=== PATIENT | female | born 1945 | race Caucasian/White ===

== ENCOUNTER 2016-07-30 00:28 | Emergency (ER) | payer MEDICARE, MEDICAID ==
[2016-07-30] MEDS ORDERED: TOPICAL LIDOCAINE W/ EPI 5 ML TOP ONE (00:34)
--- NOTE | 2016-07-30 00:41 | Emergency Department Record ---
History of Present Illness - General Chief Complaint: Fall Injury Stated Complaint: FALL Time Seen by Provider: 07/30/16 00:33 Source: Patient Mode of Arrival: Ambulatory Limitations: No limitations - History of Present Illness Initial Comments: 70 yo female presents afer a fall at her [facility]. She was using her walker and got going to fast and fell forward. She hit her right eyebrow area. No LOC. She is at her baseline. She has a skin tear on her right forearm as well. She ambulated into the ED without pain or limp. Complaint: Fall -: Hour(s) (1) Fall From: Standing When Fall Occurred: Just prior to arrival Fall Witnessed: Yes, by living facility staff Place Fall Occurred: snf/SNF Loss of Consciousness: None Prolonged Down Time?: No Symptoms Prior to Fall: None Location: Head Location - Extremities: Right: Forearm Severity: Moderate Quality: Aching Associated Symptoms: Denies - [place] Coma Scale Eye Response: (4) Open spontaneously Motor Response: (6) Obeys commands Verbal Response: (5) Oriented [place] Total: 15 - Related Data Home Medications Medication Instructions Recorded Confirmed Last Taken Alendronate Sodium 70 mg PO WEEKLY 07/30/16 07/30/16 07/24/16 Aspirin 81 mg PO DAILY 07/30/16 07/30/16 07/29/16 Atorvastatin Calcium 10 mg PO DAILY 07/30/16 07/30/16 07/29/16 Carbamide Peroxide [Debrox] 5 drop OT ASDIR 07/30/16 07/30/16 07/24/16 Cyanocobalamin (Vitamin B-12) 1.25 mg PO WEEKLY 07/30/16 07/30/16 07/24/16 [Vitamin B-12] Fexofenadine HCl [Nunu Allergy] 180 mg PO QAM 07/30/16 07/30/16 Unknown Levetiracetam [Keppra] 1,500 mg PO QHS 07/30/16 07/30/16 07/29/16 Levetiracetam [Keppra] 750 mg PO QAM 07/30/16 07/30/16 07/29/16 Multivitamin with Iron [Tab-A-Brooks 1 each PO DAILY 07/30/16 07/30/16 07/29/16 with Iron] Paroxetine HCl [Paxil] 30 mg PO DAILY 07/30/16 07/30/16 07/29/16 Sennosides/Docusate Sodium 2 each PO QHS 07/30/16 07/30/16 07/29/16 [Doc-Q-Lax Tablet] Trazodone HCl 100 mg PO QHS 07/30/16 07/30/16 07/28/16 Allergies Allergy/AdvReac Type Severity Reaction Status Date / Time No Known Drug Allergies Allergy Verified 07/30/16 00:34 Review of Systems Constitutional: Denies: Chills, Fever, Weakness Eyes: Denies: Eye discharge, Eye pain, Photophobia ENT: Denies: Congestion, Throat pain Respiratory: Denies: Cough Cardiovascular: Denies: Chest pain, Palpitations, Syncope Endocrine: Denies: Fatigue Gastrointestinal: Denies: Abdominal pain, Diarrhea, Nausea, Vomiting Genitourinary: Denies: Dysuria, Urgency Musculoskeletal: Denies: Arthralgia, Back pain, Myalgia Skin: Reports: As per HPI, Other Neurological: Denies: Abnormal gait, Confusion, Headache, Numbness, Tingling, Tremors, Vertigo, Weakness Psychiatric: Denies: Anxiety Hematological/Lymphatic: Denies: Easy bleeding, Easy bruising, Swollen glands Physical Exam - General General Appearance: Alert, Oriented x3, Cooperative, No acute distress Limitations: No limitations - Head Head exam: negative: Atraumatic, Normal inspection Head exam detail: Laceration (20mm right eyebrow) Image of Face/Head: 1 - 2cm eyebrow laceration - Eye Eye exam: PERRL, EOMI. negative: Conjunctival injection, Periorbital swelling - ENT ENT exam: Normal exam, Mucous membranes moist Ear exam: Normal external inspection Nasal Exam: Normal inspection Mouth exam: Normal external inspection Teeth exam: Normal inspection - Neck Neck exam: Normal inspection, Full ROM. negative: Tenderness - Respiratory Respiratory exam: Normal lung sounds bilaterally. negative: Accessory muscle use, Respiratory distress, Rhonchi, Stridor, Wheezes - Cardiovascular Cardiovascular Exam: Regular rate, Normal rhythm, Normal heart sounds - GI/Abdominal GI/Abdominal exam: Soft. negative: Tenderness - Rectal Rectal exam: Deferred - exam: Deferred - Extremities Extremities exam: Full ROM, Normal capillary refill. negative: Normal inspection (2cm right forearm skin tear), Joint swelling, Tenderness - Back Back exam: Reports: Normal inspection, Full ROM. Denies: Muscle spasm, Rash noted, Tenderness - Neurological Neurological exam: Alert, Normal gait, Oriented X3. negative: Altered - Psychiatric Psychiatric exam: Normal affect, Normal mood. negative: Agitated, Anxious - Skin Type of lesion: Laceration, Other (skin tear) Course - Reevaluation(s) Reevaluation #1: The skin tear was cleaned and dried Sterisprips used to close 07/30/16 00:39 Reevaluation #2: 2cm eyebrow laceration repair TLE placed Lidocaine 1% with Epi 1.5ml local Betadine prep NS irrigation Chromic Gut 5-0 suture #4 sutures placed tolerated well CT report of the head by [facility] was reported as Soft Tissue hematoma, no fracture or acute injury 07/30/16 01:21 CT scan of the cervical spine no definite abnormality. No fracture, age indeterminate mild superior endplate deformities of T2 and 3. 07/30/16 01:27 Disposition Disposition: Discharge Clinical Impression: Eyebrow laceration Qualifiers: Encounter type: initial encounter Laterality: right Qualified Code(s): S01.111A - Laceration without foreign body of right eyelid and periocular area, initial encounter Disposition: Home, Self-Care Condition: (1) Good Instructions: Laceration (ED), Fall Prevention for Older Adults (ED) Additional Instructions: Return if pain, dizziness, fever, or any new concerns The sutures are dissolvable and will come out in the next week Return if there is any concern about the healing of the laceration or skin tear Forms: Patient Portal Access Time of Disposition: 01:24
--- NOTE | 2016-08-01 03:48 | CT SCAN REPORT ---
DATE: 07/30/2016 at 12:53 a.m. EXAM: CT SCAN OF THE BRAIN WITHOUT CONTRAST. HISTORY: Head injury status post fall tonight. HAND DOMINANCE: Right. ENCOUNTER: Initial. TECHNIQUE: Standard CT imaging of the brain was performed in the axial plane without contrast. Additional coronal and sagittal reformatted images were also performed. COMPARISON: None. FINDINGS: The ventricles and subarachnoid spaces are normal for the patient's age. Mild chronic small-vessel ischemic changes are present within the periventricular and subcortical white matter of both cerebral hemispheres. There is no mass, mass effect, intracranial hemorrhage, visible acute infarct, or abnormal extra-axial fluid. The skull is intact. There are chronic- appearing nasal fractures. No definite acute fracture is identified. There is leftward deviation of the anterior bony nasal septum. There is focalized scalp swelling and laceration within the right frontal region. The orbits and mastoids are normal. IMPRESSION: 1. NO ACUTE INTRACRANIAL ABNORMALITY OR SKULL FRACTURE. 2. MILD CHRONIC SMALL-VESSEL ISCHEMIC CHANGES. 3. CHRONIC-APPEARING NASAL BONE FRACTURES. 4. RIGHT FRONTAL SCALP HEMATOMA AND LACERATION. JOB NUMBER: [id number] [facility]
--- NOTE | 2016-08-01 07:25 | CT SCAN REPORT ---
EXAM: CT SCAN OF THE CERVICAL SPINE WITHOUT CONTRAST HISTORY: FELL TONIGHT. HEAD INJURY. TECHNIQUE: Standard CT imaging of the cervical spine was performed in the axial plane without contrast. Additional coronal and sagittal reformatted images were also performed. Comparison: None. Encounter: Initial. FINDINGS: There is mild exaggeration of the cervical lordosis. The craniocervical and cervicothoracic junctions appear normal. There is no visible acute fracture, subluxation, or prevertebral soft tissue swelling. There is mild compression of the superior end plates of T2, T3, and T4 of uncertain age. No significant surrounding edema is present on the current study. Recommend correlation with the patient's clinical symptoms. If indicated, these could be further assessed with MRI of the thoracic spine. There is severe disk space narrowing of the C6-C7 level with associated end plate degenerative change. There is moderate disk space narrowing of the C5-C6 and C7-T1 levels. There is mild anterolisthesis of C7 on T1 which appears secondary to bilateral facet arthropathy. Facet arthropathy is also present throughout the remaining cervical levels. There are advanced arthritic changes at the atlantodental articulation. There is no gross central canal stenosis. Moderate neural foraminal narrowing is present at multiple levels. Vascular calcifications are present within the carotid arteries bilaterally. The neck soft tissues are otherwise normal. IMPRESSION: 1. MILD AGE INDETERMINATE COMPRESSION DEFORMITIES OF THE SUPERIOR END PLATES OF T2, T3, AND T4. RECOMMEND CORRELATION WITH THE PATIENT'S CLINICAL SYMPTOMS AND FOLLOW-UP MRI INDICATED. 2. NO ACUTE CERVICAL SPINE PATHOLOGY. 3. EXTENSIVE MULTILEVEL DEGENERATIVE DISK DISEASE AND FACET ARTHROPATHY . JOB [facility]BER: [id number] [facility]
== END 2016-07-30 01:34 | disposition home or self-care (01) ==
LOC: ER 00:28
DX: S01.111A Laceration without foreign body of right eyelid and periocular area, initial encounter (principal); S51.811A Laceration without foreign body of right forearm, initial encounter; M50.30 Other cervical disc degeneration, unspecified cervical region; W18.30XA Fall on same level, unspecified, initial encounter; Y92.129 Unspecified place in nursing home as the place of occurrence of the external cause
CPT/HCPCS: 12011; 70450; 72125; 72141; 99283; 99284

== ENCOUNTER 2016-08-14 01:57 | Emergency (ER) | payer MEDICARE, MEDICAID ==
[2016-08-14] MEDS ORDERED: ACETAMINOPHEN 325 MG TAB PO ONE (02:15)
--- NOTE | 2016-08-14 02:21 | Emergency Department Record ---
History of Present Illness - General Chief Complaint: Fall Injury Stated Complaint: FELL,HIT HEAD Time Seen by Provider: 08/14/16 02:07 Source: Patient, Family Mode of Arrival: Ambulatory Limitations: No limitations - History of Present Illness Initial Comments: The patient is here due to falling at home about an hour ago and bumping her head. She has a hx of developmental delay and walks with a walker and lives at an [facility] home. Per her caregiver she gets up once a night to use the bathroom and tonight slipped and bumped her head on a table. There was no reported LOC and the fall was heard by staff. She was able to ambulating normally since the fall and only is complaining of mild L sided head pain where the trauma occurred. She has had no nausea, vomiting, confusion, balance issues or neck pain. The patient is not on any blood thinners. MD Complaint: Fall Onset/Timin -: Minutes(s) Fall From: Standing When Fall Occurred: Just prior to arrival Fall Witnessed: No Place Fall Occurred: Home Loss of Consciousness: None Prolonged Down Time?: No Symptoms Prior to Fall: None Location: Head Severity: Mild Severity scale (1-10): 3 Quality: Aching Context: Tripped/slipped Associated Symptoms: Denies - [place] Coma Scale Eye Response: (4) Open spontaneously Motor Response: (6) Obeys commands Verbal Response: (5) Oriented [place] Total: 15 - Related Data Home Medications Medication Instructions Recorded Confirmed Last Taken Alendronate Sodium 70 mg PO WEEKLY 07/30/16 08/14/16 07/24/16 Aspirin 81 mg PO DAILY 07/30/16 08/14/16 07/29/16 Atorvastatin Calcium 10 mg PO DAILY 07/30/16 08/14/16 07/29/16 Carbamide Peroxide [Debrox] 5 drop OT ASDIR 07/30/16 08/14/16 07/24/16 Cyanocobalamin (Vitamin B-12) 1.25 mg PO WEEKLY 07/30/16 08/14/16 07/24/16 [Vitamin B-12] Fexofenadine HCl [Nunu Allergy] 180 mg PO QAM 07/30/16 08/14/16 Unknown Levetiracetam [Keppra] 1,500 mg PO QHS 07/30/16 08/14/16 07/29/16 Levetiracetam [Keppra] 750 mg PO QAM 07/30/16 08/14/16 07/29/16 Multivitamin with Iron [Tab-A-Brooks 1 each PO DAILY 07/30/16 08/14/16 07/29/16 with Iron] Paroxetine HCl [Paxil] 30 mg PO DAILY 07/30/16 08/14/16 07/29/16 Sennosides/Docusate Sodium 2 each PO QHS 07/30/16 08/14/16 07/29/16 [Doc-Q-Lax Tablet] Trazodone HCl 100 mg PO QHS 07/30/16 08/14/16 07/28/16 Allergies Allergy/AdvReac Type Severity Reaction Status Date / Time No Known Drug Allergies Allergy Verified 08/14/16 02:01 Travel Screening - Travel/Exposure Within Last 30 Days Have you traveled within the last 30 days?: No - Travel/Exposure Within Last Year Have you traveled outside the [place] in the last year?: No Review of Systems Constitutional: Denies: Chills, Fever Eyes: Denies: Eye discharge ENT: Denies: Congestion Respiratory: Denies: Cough, Dyspnea Past Medical History - SOCIAL HISTORY Smoking Status: Never smoker Alcohol Use: None Drug Use: None - RESPIRATORY Hx Respiratory Disorders: No - CARDIOVASCULAR Hx Cardio Disorders: No - NEURO Hx Seizures: Yes - GI Hx GI Disorders: No - Hx Genitourinary Disorders: No - ENDOCRINE Hx Endocrine Disorders: No - MUSCULOSKELETAL Hx Musculoskeletal Disorders: No - PSYCH Hx Psych Problems: Yes Comment:: mental retardation - HEMATOLOGY/ONCOLOGY Hx Hematology/Oncology Disorders: No Family Medical History Any Significant Family History?: No Physical Exam - General General Appearance: Alert, Cooperative, No acute distress - Head Head exam: Normocephalic. negative: Atraumatic, Normal inspection (There is a mild contusion to the L parietal scalp area. There is no swelling or bleeding or laceration.) - Eye Eye exam: Normal appearance, PERRL - ENT Throat exam: Normal inspection. negative: Tonsillar erythema, Tonsillar exudate - Neck Neck exam: Normal inspection, Full ROM. negative: Lymphadenopathy, Meningismus , Tenderness (There is no posterior cspine tenderness and no pain with ROM.) - Respiratory Respiratory exam: Normal lung sounds bilaterally. negative: Respiratory distress - Cardiovascular Cardiovascular Exam: Regular rate, Normal rhythm, Normal heart sounds - GI/Abdominal GI/Abdominal exam: Soft, Normal bowel sounds. negative: Tenderness - Extremities Extremities exam: Normal inspection, Full ROM (There is no pain with ROM of the hips or shoulders.), Normal capillary refill. negative: Tenderness - Neurological Neurological exam: Alert, Normal gait. negative: Abnormal gait, Altered, Motor sensory deficit, Oriented X3 (The patient is oriented to name, Bday and place but not date and that is normal per her caregiver.) Course Vital Signs 08/14/16 02:05 Temperature 98.0 F Pulse Rate [ 75 Pulse Ox Probe] Respiratory 18 Rate Blood Pressure 128/72 [Left Arm] Pulse Ox 95 - Reevaluation(s) Reevaluation #1: The patient is doing very well at this time. She denies any head pain or neck pain and is acting normally per her caregiver. I did discuss the neg CT with the caregiver and the need to watch for any signs of any head injury. 08/14/16 03:01 Medical Decision Making - Data Complexity MDM Data: X-Ray Ordered and/or Reviewed - Radiology Data Radiology results: Report reviewed (Head CT: Neg for any acute abnormality.) Disposition Disposition: Discharge Clinical Impression: Head contusion Qualifiers: Encounter type: initial encounter Contusion of head detail: scalp Qualified Code(s): S00.03XA - Contusion of scalp, initial encounter Disposition: Home, Self-Care Condition: (1) Good Instructions: Fall Prevention for Older Adults (ED), Scalp Contusion in Adults (ED) Additional Instructions: Please use Tylenol for pain if needed. Watch for any signs of a head injury such as a headache, vomiting, or increasing confusion. Return to the ER for any problems or any signs of a head injury. Forms: Patient Portal Access Time of Disposition: 03:00
== END 2016-08-14 03:06 | disposition home or self-care (01) ==
LOC: ER 01:57
DX: S00.03XA Contusion of scalp, initial encounter (principal); R51 Headache; W01.190A Fall on same level from slipping, tripping and stumbling with subsequent striking against furniture, initial encounter; F79 Unspecified intellectual disabilities; Y92.009 Unspecified place in unspecified non-institutional (private) residence as the place of occurrence of the external cause
CPT/HCPCS: 70450; 99283

== ENCOUNTER 2017-08-19 21:42 | Emergency (ER) | payer MEDICARE, MEDICAID ==
--- NOTE | 2017-08-19 22:48 | Emergency Department Record ---
History of Present Illness - General Chief Complaint: Fall Injury Stated Complaint: FELL AND HIT HEAD Time Seen by Provider: 08/19/17 22:04 Source: Patient Mode of Arrival: Ambulatory Limitations: No limitations - History of Present Illness Initial Comments: pt fell in bathroom hitting head on toilet. she had no loc and she did not have a seizure. she has a laceration MD Complaint: Fall Onset/Timin -: Minutes(s) Fall From: Standing When Fall Occurred: Just prior to arrival Fall Witnessed: No Place Fall Occurred: [facility] Loss of Consciousness: None Prolonged Down Time?: No Symptoms Prior to Fall: None Location: Head Severity scale (1-10): 1 Associated Symptoms: Denies - [place] Coma Scale Eye Response: (4) Open spontaneously Motor Response: (6) Obeys commands Verbal Response: (5) Oriented [place] Total: 15 - Related Data Allergies Allergy/AdvReac Type Severity Reaction Status Date / Time No Known Drug Allergies Allergy Verified 08/14/16 02:01 Travel Screening - Travel/Exposure Within Last 30 Days Have you traveled within the last 30 days?: No - Travel Symptoms Symptom Screening: None Review of Systems Reviewed: No additional complaints except as noted below Constitutional: Reports: As per HPI. Denies: Chills, Fever, Malaise, Night sweats, Weakness, Weight change Eyes: Reports: As per HPI. Denies: Eye discharge, Eye pain, Photophobia, Vision change ENT: Reports: As per HPI. Denies: Congestion, Dental pain, Ear pain, Epistaxis , Hearing loss, Throat pain Respiratory: Reports: As per HPI. Denies: Cough, Dyspnea, Hemoptysis, Stridor, Wheezes Cardiovascular: Reports: As per HPI. Denies: Arrhythmia, Chest pain, Dyspnea on exertion, Edema, Murmurs, Orthopnea, Palpitations, Paroxysmal nocturnal dyspnea, Rheumatic Fever, Syncope Endocrine: Reports: As per HPI. Denies: Fatigue, Heat or cold intolerance, Polydipsia, Polyuria Gastrointestinal: Reports: As per HPI. Denies: Abdominal pain, Constipation, Diarrhea, Hematemesis, Hematochezia, Melena, Nausea, Vomiting Genitourinary: Reports: As per HPI. Denies: Abnormal menses, Discharge, Dyspareunia, Dysuria, Frequency, Hematuria, Incontinence, Retention, Urgency Musculoskeletal: Reports: As per HPI. Denies: Arthralgia, Back pain, Gout, Joint swelling, Myalgia, Neck pain Skin: Reports: As per HPI. Denies: Bruising, Change in color, Change in hair/ nails, Lesions, Pruritus, Rash Neurological: Reports: As per HPI. Denies: Abnormal gait, Confusion, Headache, Numbness, Paresthesias, Seizure, Tingling, Tremors, Vertigo, Weakness Psychiatric: Reports: As per HPI. Denies: Anxiety, Auditory hallucinations, Depression, Homicidal thoughts, Suicidal thoughts, Visual hallucinations Hematological/Lymphatic: Reports: As per HPI. Denies: Anemia, Blood Clots, Easy bleeding, Easy bruising, Swollen glands Past Medical History - SOCIAL HISTORY Smoking Status: Never smoker - RESPIRATORY Hx Respiratory Disorders: No - CARDIOVASCULAR Hx Cardio Disorders: No - NEURO Hx Neuro Disorders: Yes Hx Seizures: Yes - GI Hx GI Disorders: No - Hx Genitourinary Disorders: No - ENDOCRINE Hx Endocrine Disorders: Yes Hx Thyroid Disease: Yes - MUSCULOSKELETAL Hx Musculoskeletal Disorders: No - PSYCH Hx Psych Problems: Yes Hx Anxiety: Yes Hx Behavior Problems: (Impulsive control disorder) Comment:: mental retardation - HEMATOLOGY/ONCOLOGY Hx Hematology/Oncology Disorders: No Family Medical History Any Significant Family History?: No Family Hx Comment (NOT TO BE USED IN PLACE OF ITEMS BELOW): unknown Physical Exam - General General Appearance: Alert, Oriented x3, Cooperative, Mild distress - Head Head exam: Normal inspection Head exam detail: Laceration - Eye Eye exam: Normal appearance, PERRL, EOMI Pupils: Normal accommodation - ENT ENT exam: Normal exam, Mucous membranes moist, Normal external ear exam, Normal orophraynx Ear exam: Normal external inspection. negative: External canal tenderness Nasal Exam: Normal inspection. negative: Discharge, Sinus tenderness Mouth exam: Normal external inspection, Tongue normal Teeth exam: Normal inspection. negative: Dental caries Throat exam: Normal inspection. negative: Tonsillar erythema, Tonsillar exudate - Neck Neck exam: Normal inspection, Full ROM. negative: Tenderness - Respiratory Respiratory exam: Normal lung sounds bilaterally. negative: Respiratory distress - Cardiovascular Cardiovascular Exam: Regular rate, Normal rhythm, Normal heart sounds - GI/Abdominal GI/Abdominal exam: Soft, Normal bowel sounds. negative: Tenderness - Rectal Rectal exam: Deferred - exam: Deferred - Extremities Extremities exam: Normal inspection, Full ROM, Normal capillary refill. negative: Tenderness - Back Back exam: Reports: Normal inspection, Full ROM. Denies: Muscle spasm, Rash noted, Tenderness - Neurological Neurological exam: Alert, CN II-XII intact, Normal gait, Oriented X3 - Psychiatric Psychiatric exam: Normal affect, Normal mood - Skin Skin exam: Dry, Intact, Normal color, Warm Course Vital Signs 08/19/17 21:49 Temperature 97.6 F Pulse Rate [ 77 Pulse Ox Probe] Respiratory 18 Rate Blood Pressure 160/71 [Right Arm] Pulse Ox 100 - Reevaluation(s) Reevaluation #1: 08/19/17 23:19 laceration does not require stapling Reevaluation #2: 08/19/17 23:[address] neg for acute injury Disposition Disposition: Discharge Clinical Impression: Head injury Qualifiers: Encounter type: initial encounter Qualified Code(s): S09.90XA - Unspecified injury of head, initial encounter Disposition: Home, Self-Care Condition: (1) Good Instructions: Fall Prevention for Older Adults (ED), Head Injury (ED) Additional Instructions: follow up with family doctor. return sooner if worse Forms: Patient Portal Access Quality - Quality Measures Quality Measures: N/A - Blood Pressure Screening Does Patient Have Any of the Following: No Blood Pressure Classification: Hypertensive Reading Systolic Measurement: 160 Diastolic Measurement: 71 Screening for High Blood Pressure: < First Hypertensive BP, F/U Documented > [ [id number]] First Hypertensive Follow-up Interventions: Follow-up with rescreen GT 1 day and LT 4 weeks.
--- NOTE | 2017-08-22 12:23 | CT SCAN REPORT ---
EXAM: CT SCAN HEAD WO CONTRAST HISTORY: OPEN WOUND, LEFT SIDE OF HEAD. TECHNIQUE: Routine noncontrast CT examination of the head. COMPARISON: CT head without contrast dated 08/14/2016. FINDINGS: There is subarachnoid space dilatation, mild in the supratentorial region and mild to moderate in the infratentorial region consistent with atrophy. This pattern is unchanged. Mild periventricular and subcortical white matter lucencies are scattered in each cerebral hemisphere symmetrically, unchanged. No new area of abnormally increased or decreased attenuation is noted throughout the brain substance. No new abnormal extra-axial fluid collection is seen nor is there skull fracture identified. Minor left parietal scalp swelling is suggested. Leftward deviation of the osseous nasal septum anteriorly is stable. The visualized paranasal sinuses and mastoid air cells are clear. The orbits, as visualized, are unremarkable. IMPRESSION: 1. NO CT EVIDENCE OF ACUTE MAJOR VESSEL INFARCT, INTRACRANIAL HEMORRHAGE, MASS, NOR SKULL FRACTURE. NO SIGNIFICANT CHANGE IN APPEARANCE OF THE BRAIN SINCE 08/14. 2. CEREBELLAR GREATER THAN CEREBRAL ATROPHY. 3. MINOR LEFT PARIETAL SCALP SWELLING. 4. NOT MENTIONED ABOVE IS REDEMONSTRATION OF A SMALL CRANIOTOMY DEFECT IN THE RIGHT TEMPORAL REGION. [facility]: [id number] [facility]
== END 2017-08-19 23:30 | disposition home or self-care (01) ==
LOC: ER 21:42
DX: S01.81XA Laceration without foreign body of other part of head, initial encounter (principal); S09.90XA Unspecified injury of head, initial encounter; W01.198A Fall on same level from slipping, tripping and stumbling with subsequent striking against other object, initial encounter; Y92.121 Bathroom in nursing home as the place of occurrence of the external cause
CPT/HCPCS: 70450; 99283

== ENCOUNTER 2018-08-13 11:36 | Emergency (ER) | payer MEDICARE, MEDICAID ==
--- NOTE | 2018-08-13 11:43 | Emergency Department Record ---
History of Present Illness - General Chief Complaint: Fall Injury Stated Complaint: FELL 08/08/CASTELLANOS/SEIZURE Time Seen by Provider: 08/13/18 11:40 Source: Patient, Family Mode of Arrival: Ambulatory Limitations: No limitations - History of Present Illness Initial Comments: 72 yo female presents after a fall on August 08. The fall occurred in her skilled nursing during a visiting physician appointment. She was checked by her doctor and seemed fine at the time. She has been at her baseline. She has mentioned a headache on and off on the left. No confusion or dizziness. No nausea or vomiting. She does have a seizure disorder. She has a seizure about every 3 months. She had a typical seizure this morning and returned to baseline. She is on her Keppra without missed doses. MD Complaint: Fall, Other (Seizure. 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 (5) Fall Witnessed: Yes, by living facility staff Place Fall Occurred: [facility] Loss of Consciousness: None Prolonged Down Time?: No Symptoms Prior to Fall: None Location: Head Severity: Mild Quality: Aching Associated Symptoms: Neck pain - [place] Coma Scale Eye Response: (4) Open spontaneously Motor Response: (6) Obeys commands Verbal Response: (5) Oriented [place] Total: 15 - Related Data Home Medications Medication Instructions Recorded Confirmed Last Taken Cholecalciferol (Vitamin D3) 50,000 unit PO WEEKLY 08/13/18 08/13/18 08/13/18 [Vitamin D3] Cyproheptadine HCl 4 mg PO DAILY 08/13/18 08/13/18 08/13/18 Ferrous Sulfate [Feosol] 325 mg PO DAILY 08/13/18 08/13/18 08/13/18 Levothyroxine Sodium [Synthroid] 75 mcg PO DAILY 08/13/18 08/13/18 08/13/18 Allergies Allergy/AdvReac Type Severity Reaction Status Date / Time No Known Drug Allergies Allergy Verified 08/13/18 11:39 Review of Systems Constitutional: Denies: Chills, Fever, Malaise, Weakness Eyes: Denies: Eye discharge ENT: Denies: Congestion, Throat pain Respiratory: Denies: Cough, Dyspnea Cardiovascular: Denies: Chest pain, Palpitations, Syncope Endocrine: Denies: Fatigue, Polydipsia, Polyuria Gastrointestinal: Denies: Abdominal pain, Diarrhea, Nausea, Vomiting Genitourinary: Denies: Dysuria, Urgency Musculoskeletal: Denies: Arthralgia, Back pain, Joint swelling, Myalgia Skin: Denies: Bruising, Change in color, Rash Neurological: Reports: As per HPI, Headache, Seizure. Denies: Abnormal gait, Confusion, Numbness, Vertigo, Weakness Psychiatric: Denies: Anxiety Hematological/Lymphatic: Denies: Easy bleeding, Easy bruising Past Medical History - SOCIAL HISTORY Smoking Status: Never smoker - RESPIRATORY Hx Respiratory Disorders: No - CARDIOVASCULAR Hx Cardio Disorders: No - NEURO Hx Neuro Disorders: Yes Hx Seizures: Yes - GI Hx GI Disorders: No - Hx Genitourinary Disorders: No - ENDOCRINE Hx Endocrine Disorders: Yes Hx Thyroid Disease: Yes - MUSCULOSKELETAL Hx Musculoskeletal Disorders: No - PSYCH Hx Psych Problems: Yes Hx Anxiety: Yes Hx Behavior Problems: (Impulsive control disorder) Comment:: mental retardation - HEMATOLOGY/ONCOLOGY Hx Hematology/Oncology Disorders: No Family Medical History Family Hx Comment (NOT TO BE USED IN PLACE OF ITEMS BELOW): unknown Physical Exam - General General Appearance: Alert, Oriented x3, Cooperative, No acute distress - Head Head exam: negative: Atraumatic Head exam detail: Abrasion Image of Face/Head: 1 - small mild abrasion 2 - tender, no swelling - Eye Eye exam: Normal appearance, PERRL. negative: Conjunctival injection, Scleral icterus Pupils: Normal accommodation. negative: Irregular, Unequal - ENT ENT exam: Normal exam Ear exam: Normal external inspection Nasal Exam: Normal inspection Mouth exam: Normal external inspection Teeth exam: Normal inspection Throat exam: Normal inspection - Neck Neck exam: Normal inspection - Respiratory Respiratory exam: Normal lung sounds bilaterally. negative: Respiratory distress - Cardiovascular Cardiovascular Exam: Regular rate, Normal rhythm, Normal heart sounds Peripheral Pulses: 2+: Radial (R), Radial (L) - GI/Abdominal GI/Abdominal exam: Soft. negative: Tenderness - Rectal Rectal exam: Deferred - exam: Deferred - Extremities Extremities exam: Normal inspection - Back Back exam: Denies: CVA tenderness (R), CVA tenderness (L) - Neurological Neurological exam: Alert, CN II-XII intact, Other (At baseline, answers questions). negative: Altered, Motor sensory deficit - Psychiatric Psychiatric exam: Normal affect, Normal mood. negative: Agitated, Anxious - Skin Skin exam: Abrasion, Dry, Normal color, Warm Course - Reevaluation(s) Reevaluation #1: The vitals were reviewed. No acute abnormality 08/13/18 12:57 The labs were reviewed CBC WBC is 13 No acute changes on the CMP 08/13/18 13:05 The HCT was reviewed. No acute injury. Numerous prior older stable findings (see full report) 08/13/18 13:[address] was reviewed. No acute injury. Widespread degenerative changes noted. DC home with instructions for close follow up with PCP or return if any concerns Medical Decision Making - Lab Data Result diagrams: 08/13/18 12:08 08/13/18 12:08 Disposition Disposition: Discharge Clinical Impression: Seizure disorder Contusion of head Qualifiers: Encounter type: initial encounter Contusion of head detail: unspecified part of head Qualified Code(s): S00.93XA - Contusion of unspecified part of head, initial encounter Disposition: Home, Self-Care Condition: (1) Good Instructions: Fall Prevention for Older Adults (ED) Additional Instructions: Call your doctor for the next available follow up appointment Review this ER visit and the tests performed with your family doctor Return to the ER for a recheck if worse, any new concerns or questions Take the prescriptions provided as directed Forms: Patient Portal Access Quality - Quality Measures Quality Measures: N/A - Blood Pressure Screening Does Patient Have Any of the Following: No Blood Pressure Classification: Pre-Hypertensive BP Reading Systolic Measurement: 136 Diastolic Measurement: 73 Screening for High Blood Pressure: < Pre-Hypertensive BP, F/U Documented > [G8950] Pre-Hypertensive Follow-up Interventions: Referral to alternative/primary care provider.
[2018-08-13 12:14] LABS: ABSOLUTE NEUTROPHIL COUNT 10.77; HEMATOCRIT 34.2 % (35.0-47.0); HEMOGLOBIN 10.5 gm/dl (11.6-16.0); MEAN CELL VOLUME 89.8 fl (81-97); MEAN CORPUSCULAR HEMOGLOBIN 27.5 pg (27-33); MEAN CORPUSCULAR HGB CONC 30.7 g/dl (32-36); MEAN PLATELET VOLUME 8.2 fl (7.4-10.4); PLATELET COUNT 375 K/uL (130-400); RED BLOOD COUNT 3.81 M/uL (3.80-5.40); RED CELL DISTRIBUTION WIDTH 14.6 % (11.5-14.5)
[2018-08-13 12:22] LABS: PLATELET ESTIMATE NORMAL (NORMAL)
[2018-08-13 12:27] LABS: BLOOD UREA NITROGEN 17 mg/dL (8-23)
[2018-08-13 12:28] LABS: CREATININE 0.6 mg/dL (0.5-0.9); EST GLOMERULAR FILTRATION RATE > 60 mL/min; PARTIAL THROMBOPLASTIN TIME 38.5 SECONDS (24.5-39.1); PROTHROMBIN TIME (PATIENT) 10.6 SECONDS (9.5-12.1)
[2018-08-13 12:30] LABS: GLUCOSE,RANDOM 93 mg/dL (74-109)
--- NOTE | 2018-08-14 19:37 | CT SCAN REPORT ---
EXAM: CT SCAN HEAD WO CONTRAST HISTORY: FALL ON 08/08/2018. HEADACHE BEGINNING YESTERDAY. SEIZURE THIS MORNING. TECHNIQUE: Routine noncontrast CT of the brain. COMPARISON: CT brain without contrast dated 08/19/2017. FINDINGS: The subarachnoid spaces remain mildly dilated consistent with age- related atrophy. Atrophy is greater within the cerebellum than cerebral hemispheres, stable. The ventricles are not enlarged. Minor, primarily periventricular white matter lucencies are noted in each cerebral hemisphere, most pronounced in the frontal lobes. These are nonspecific but likely areas of chronic microvascular ischemia. An old lacunar infarct is suspected in the anterior limb of the right internal capsule. This is not as well visualized on the prior examination. No other area of abnormally increased or decreased attenuation is noted throughout the brain substance. No abnormal extraaxial fluid collection is seen. There is mild atherosclerotic calcification of the distal vertebral arteries and distal internal carotid arteries. No asymmetric density of the middle cerebral arteries. No skull fracture is demonstrated. Small craniotomy defect again noted within the right temporal region. The visualized paranasal sinuses and mastoid air cells are clear. There is leftward deviation of the anterior superior aspect of the osseous nasal septum and rightward displacement of the inferior mid nasal septum. Chronic left nasal bone deformity redemonstrated. IMPRESSION: 1. NO CT EVIDENCE OF ACUTE MAJOR VESSEL INFARCT, INTRACRANIAL HEMORRHAGE, MASS, NOR SKULL FRACTURE. 2. MILD AGE-RELATED ATROPHY. 3. MILD WHITE MATTER LUCENCIES IN EACH CEREBRAL HEMISPHERE ARE NONSPECIFIC, THOUGH LIKELY AREAS OF CHRONIC SMALL VESSEL ISCHEMIA. PROBABLE OLD LACUNAR INFARCT IN THE ANTERIOR LIMB OF THE RIGHT INTERNAL CAPSULE NOT WELL SEEN ON THE PRIOR EXAMINATION. 4. SMALL CRANIOTOMY DEFECT REDEMONSTRATED IN THE RIGHT TEMPORAL REGION. JOB NUMBER: [id number] [facility]
--- NOTE | 2018-08-14 19:53 | CT SCAN REPORT ---
EXAM: CT SCAN CERVICAL SPINE WO CONTRAST HISTORY: FALL ON 08/08/2018. HEADACHE BEGINNING YESTERDAY. SEIZURE THIS MORNING. TECHNIQUE: Thin-collimation helical CT examination of the cervical spine is performed without intravenous contrast. Coronal and sagittal reformatted images are generated and reviewed. COMPARISON: CT of the cervical spine without contrast dated 07/30/2016. FINDINGS: Diffuse osteopenia limits evaluation. Mild chronic superior endplate compression deformities of T1, T2, T3, and T4 appear stable. There is again noted anterolisthesis of C7 on T1. This now measures 3.5 mm, while on the prior examination 3 mm. Degenerative endplate changes at this level have progressed, now moderate in degree. Minimal anterolisthesis of C3 on C4, C4 on C5, and C5 on C6 redemonstrated. The vertebral bodies are otherwise normal in alignment and height. No acute fracture nor prevertebral soft tissue swelling. No new lytic or blastic bone lesion. Multilevel degenerative disc/degenerative endplate changes are identified, most pronounced at the C6-C7 level, where there is diffuse degenerative sclerosis of the vertebral bodies. There has been obliteration of the disc space with probable fusion of these vertebral bodies in the interval. The degenerative disc/endplate changes at the C7-T1 level are moderate to severe on the right. Again, these have progressed in the interval. The degenerative disc changes at the C5-C6 level are moderate. They are mild at the remaining cervical levels. No new gross osseous cervical spinal stenosis. Multilevel bilateral facet degenerative changes are identified. These are moderate to advanced in degree at all levels. No new perched facet. No new cervical mass nor adenopathy. Moderate atherosclerosis of the carotid bifurcations. There are advanced osteoarthritic changes of the left glenohumeral joint and mild osteoarthritic changes of the right glenohumeral joint. Moderate advanced degenerative changes of the left sternomanubrial joint and mild degenerative changes of the right sternomanubrial joint. IMPRESSION: 1. NO ACUTE FRACTURE, NEW SUSPICIOUS SUBLUXATION, OR PREVERTEBRAL SOFT TISSUE SWELLING. 2. DIFFUSE DEGENERATIVE CHANGES THROUGHOUT THE CERVICAL SPINE. THERE HAS BEEN PROGRESSION OF DEGENERATIVE DISEASE AT THE C7-T1 LEVEL WITH SLIGHT WORSENING OF ANTEROLISTHESIS OF C7 ON T1. THERE HAS ALSO BEEN PROGRESSION OF DEGENERATIVE DISEASE AT THE C6-C7 LEVEL WITH PARTIAL FUSION OF THESE VERTEBRAE NOW IDENTIFIED. 3. CHRONIC SUPERIOR ENDPLATE COMPRESSION DEFORMITIES OF THE VISUALIZED UPPER THORACIC VERTEBRAE ARE STABLE. JOB NUMBER: [id number] [facility]
== END 2018-08-13 13:16 | disposition home or self-care (01) ==
LOC: ER 11:36
DX: S00.93XA Contusion of unspecified part of head, initial encounter (principal); S00.81XA Abrasion of other part of head, initial encounter; M54.2 Cervicalgia; R51 Headache; G40.909 Epilepsy, unspecified, not intractable, without status epilepticus; W19.XXXA Unspecified fall, initial encounter; Y92.129 Unspecified place in nursing home as the place of occurrence of the external cause; Z91.81 History of falling
CPT/HCPCS: 70450; 72125; 80048; 85027; 85610; 85730; 99283; 99284

== ENCOUNTER 2019-04-06 21:16 | Inpatient (IN) | payer MEDICARE, MEDICAID ==
--- NOTE | 2019-04-06 21:39 | Emergency Department Record ---
History of Present Illness - General Chief complaint: Flu Like Symptoms Stated complaint: FLU LIKE SYMPTOMS Time Seen by Provider: 04/06/19 21:18 Source: Family (Caregivers) Mode of Arrival: Wheelchair Limitations: No limitations - History of Present Illness Initial comments: 73 yo female presents from an [place] [facility] for evaluation of "gunky eyes" and generalized weakness symptoms that began earlier today. Caregivers report that the patient fell resulting in injury to the left hip this evening as well. CGs report non-productive cough symptoms "for months", deny fever this evening. Caregivers are concerned about influenza. MD Complaint: Generalized weakness Onset/Timin -: Days(s) Location: Generalized Severity: Moderate Consistency: Constant Improves with: None Worsens with: None - [place] Coma Scale Eye Response: (4) Open spontaneously Motor Response: (6) Obeys commands Verbal Response: (5) Oriented [place] Total: 15 - Related Data Allergies Allergy/AdvReac Type Severity Reaction Status Date / Time No Known Drug Allergies Allergy Verified 08/13/18 11:39 Review of Systems Constitutional: Reports: Malaise, Weakness. Denies: Chills, Fever, Night sweats Eyes: Reports: Eye discharge. Denies: Eye pain ENT: Denies: Congestion, Ear pain, Epistaxis Respiratory: Reports: Cough. Denies: Dyspnea Cardiovascular: Denies: Chest pain, Dyspnea on exertion Endocrine: Denies: Fatigue, Heat or cold intolerance Gastrointestinal: Denies: Abdominal pain, Nausea, Vomiting Genitourinary: Denies: Incontinence, Retention Musculoskeletal: Reports: Arthralgia. Denies: Back pain Skin: Denies: Bruising, Change in color Neurological: Denies: Abnormal gait, Confusion, Headache, Seizure Psychiatric: Denies: Anxiety Hematological/Lymphatic: Denies: Anemia, Blood Clots Past Medical History - SOCIAL HISTORY Smoking Status: Never smoker - RESPIRATORY Hx Respiratory Disorders: No - CARDIOVASCULAR Hx Cardio Disorders: No - NEURO Hx Neuro Disorders: Yes Hx Seizures: Yes - GI Hx GI Disorders: No - Hx Genitourinary Disorders: No - ENDOCRINE Hx Endocrine Disorders: Yes Hx Thyroid Disease: Yes - MUSCULOSKELETAL Hx Musculoskeletal Disorders: No - PSYCH Hx Psych Problems: Yes Hx Anxiety: Yes Hx Behavior Problems: (Impulsive control disorder) Comment:: mental retardation - HEMATOLOGY/ONCOLOGY Hx Hematology/Oncology Disorders: No Family Medical History Family Hx Comment (NOT TO BE USED IN PLACE OF ITEMS BELOW): unknown Physical Exam - General General Appearance: Alert, Oriented x3, Cooperative, Mild distress Limitations: No limitations - Head Head exam: Atraumatic, Normocephalic, Normal inspection Head exam detail: negative: Abrasion, Contusion, Aguilar's sign, General tenderness, Hematoma, Laceration - Eye Eye exam: Conjunctival injection, Other (Purulent drainage is present to the left medial canthus>right). negative: Periorbital swelling, Periorbital tenderness - ENT Ear exam: negative: Auricular hematoma, Auricular trauma Nasal Exam: negative: Active bleeding, Discharge, Dried blood, Foreign body Mouth exam: negative: Drooling, Laceration, Muffled voice, Tongue elevation - Neck Neck exam: Normal inspection. negative: Meningismus, Tenderness - Respiratory Respiratory exam: Normal lung sounds bilaterally. negative: Rales, Respiratory distress, Rhonchi, Stridor - Cardiovascular Cardiovascular Exam: Regular rate, Normal rhythm, Normal heart sounds - GI/Abdominal GI/Abdominal exam: Soft. negative: Rebound, Rigid, Tenderness - Rectal Rectal exam: Deferred - exam: Deferred - Extremities Extremities exam: Full ROM, Tenderness (Mild TTP to the left hip subjectively on examination, FROM is present on examination.). negative: Calf tenderness, Pedal edema - Back Back exam: Denies: CVA tenderness (R), CVA tenderness (L) - Neurological Neurological exam: Alert, Oriented X3 - Psychiatric Psychiatric exam: Normal affect, Normal mood - Skin Skin exam: Normal color. negative: Abrasion Type of lesion: negative: abrasion Course Vital Signs 04/06/19 21:29 Temperature 98.6 F Pulse Rate [ 88 Pulse Ox Probe] Respiratory 28 H Rate Blood Pressure 140/67 [Left Arm] Pulse Ox 96 - Reevaluation(s) Reevaluation #1: 04/06/19 22:17 Laboratory studies were reviewed and appear grossly unremarkable for an acute process except for the following: WBC 17.7 Reevaluation #2: 04/06/19 22:38 CXR: Possible reticulonodular infiltrate bases bilaterally Left Hip: No acute process Reevaluation #3: 04/06/19 22:52 UA was reviewed and appears negative for infection. Examination appears most c/w atypical pneumonia (elevated WBC, weakness, tachypnea) Will initiate treatment with Zithromax and Rocephin and admit for further evaluation. Reevaluation #4: 04/07/19 06:45 Case was discussed with Dr. Matson, will accept admission at this time. Medical Decision Making - Lab Data Result diagrams: 04/06/19 21:42 04/06/19 21:42 Disposition Disposition: Admit Clinical Impression: Generalized weakness, Atypical pneumonia Disposition: Still a Patient at [facility] Decision to Admit: Admit from ER Decision to Admit Date: 04/06/19 Decision to Admit Time: 22:55 Condition: (2) Stable Time of Disposition: 22:55 Quality - Quality Measures Quality Measures: N/A - Blood Pressure Screening Does Patient Have Any of the Following: No Blood Pressure Classification: Pre-Hypertensive BP Reading Systolic Measurement: 136 Diastolic Measurement: 70 Screening for High Blood Pressure: < Pre-Hypertensive BP, F/U Documented > [G8950] Pre-Hypertensive Follow-up Interventions: Referral to alternative/primary care provider.
[2019-04-06] MEDS ORDERED: 0.9 % SODIUM CHLORIDE 1000ML 500 ML IV SCH (21:45)
[2019-04-06 21:51] LABS: HEMATOCRIT 38.4 % (35.0-47.0); HEMOGLOBIN 12.1 gm/dl (11.6-16.0); MEAN CELL VOLUME 89.5 fl (81-97); MEAN CORPUSCULAR HEMOGLOBIN 28.2 pg (27-33); MEAN CORPUSCULAR HGB CONC 31.5 g/dl (32-36); MEAN PLATELET VOLUME 8.1 fl (7.4-10.4); PLATELET COUNT 349 K/uL (130-400); RED BLOOD COUNT 4.29 M/uL (3.80-5.40); RED CELL DISTRIBUTION WIDTH 13.9 % (11.5-14.5); WHITE BLOOD COUNT W/O DIFF 17.7 K/uL (4.2-12.2)
[2019-04-06 21:55] LABS: INFLUENZA A NEGATIVE (NEGATIVE); INFLUENZA B NEGATIVE (NEGATIVE)
[2019-04-06 22:04] LABS: BLOOD UREA NITROGEN 16 mg/dL (8-23); CREATININE 0.7 mg/dL (0.5-0.9); EST GLOMERULAR FILTRATION RATE > 60 mL/min
[2019-04-06 22:05] LABS: TOTAL PROTEIN 6.8 g/dL (6.6-8.7)
[2019-04-06 22:06] LABS: GLUCOSE,RANDOM 125 mg/dL (74-109)
[2019-04-06 22:09] LABS: ALB/GLOB RATIO 1.1 (1.1-1.8); ALBUMIN 3.5 g/dL (4.0-5.0); ALKALINE PHOSPHATASE 92 U/L (35-104); ALT/SGPT 18 U/L (<33); AST/SGOT 19 U/L (10.0-35.0)
--- NOTE | 2019-04-06 22:35 | RADIOLOGY REPORT ---
EXAMINATION: Two View Chest Radiographs EXAM DATE: 04/06/2019 10:24 PM TECHNIQUE: Frontal and lateral views INDICATION: weakness, cough COMPARISON: None ENCOUNTER: Not applicable FINDINGS: Reticulonodular pattern primarily in the lower lobes partially obscuring the lower thoracic vertebral bodies on lateral view. Upper lungs are clear. Cardiac silhouette is not enlarged. Diaphragm is unre markable. Osteopenia.. IMPRESSION: 1. Reticulonodular pattern in the lower lobes for which atypical pneumonia is possible. Dictated by: Sanket Fuentes MD on 04/06/2019 10:28 PM. .
--- NOTE | 2019-04-06 22:35 | RADIOLOGY REPORT ---
EXAMINATION: Left Hip Minimum Two Views EXAM DATE: 04/06/2019 10:25 PM TECHNIQUE: AP pelvis and left frog leg lateral hip views INDICATION: fall, injury COMPARISON: None ENCOUNTER: Initial FINDINGS: There is no acute bone or joint abnormality. There is a chronic appearing fracture deformity of the l eft pubic rami seen adjacent to the pubic symphysis. There is a calcification in the pelvis possibly related to a calcified uterine fibroid. IMPRESSION: No acute abnormalities. Dictated by: Alejandra Dalal MD on 04/06/2019 10:30 PM. .
[2019-04-06 22:38] LABS: URINE APPEARANCE CLEAR; URINE BILIRUBIN NEGATIVE (NEGATIVE); URINE BLOOD TRACE-I (NEGATIVE); URINE COLOR YELLOW; URINE GLUCOSE (UA) NEGATIVE (NEGATIVE); URINE KETONE NEGATIVE (NEGATIVE); URINE LEUKOCYTE ESTERASE TRACE (NEGATIVE); URINE NITRITE NEGATIVE (NEGATIVE); URINE PROTEIN NEGATIVE (NEGATIVE); URINE UROBILINOGEN 0.2 E.U./dL (0.20 - 1.00)
[2019-04-06 22:41] LABS: PLATELET ESTIMATE NORMAL (NORMAL)
[2019-04-06] MEDS ORDERED: AZITHROMYCIN 500 MG in 0.9 % SODIUM CHLORIDE 250ML 250 ML IVPB ONE (23:02)
[2019-04-06] MEDS ORDERED: CEFTRIAXONE 1GM/50ML BAG 1 GM/50 ML BAG IVPB ONE (23:02)
[2019-04-06 23:06] LABS: URINE BACTERIA FEW; URINE RBC 0 - 2 (NONE SEEN); URINE SQUAMOUS EPITHELIAL CELL 0 - 2 /hpf; URINE WBC 0 - 2 (0-2/hpf)
[2019-04-06] MEDS ORDERED: 0.9 % SODIUM CHLORIDE 1000ML 1,000 ML IV ONE (23:30)
[2019-04-06] MEDS ORDERED: CARBAMIDE PEROXIDE 15ML BTL OT SCH (23:30)
[2019-04-06] MEDS ORDERED: CEFTRIAXONE SODIUM 1 GM in 0.9 % SODIUM CHLORIDE 100ML 100 ML IVPB SCH (23:30)
[2019-04-06] MEDS ORDERED: AZITHROMYCIN 500 MG in 0.9 % SODIUM CHLORIDE 250ML 250 ML IVPB SCH (23:30)
[2019-04-07] MEDS: GENTAMICIN SULFATE 0.3% OPTH 5 ML BTL OPTH SCH ×6 (00:14→21:28)
[2019-04-07] MEDS: BENZONATATE 100 MG CAPSULE PO PRN ×3 (00:15→21:25)
[2019-04-07] MEDS: LEVOTHYROXINE SODIUM 75 MCG TABLET PO SCH (05:38)
[2019-04-07 09:03] LABS: ABSOLUTE NEUTROPHIL COUNT 6.08; BASO % 0.3 % (0-6); EOS % 2.1 % (0-6); GRAN % 78.4 % (47-80); HEMATOCRIT 36.2 % (35.0-47.0); HEMOGLOBIN 11.4 gm/dl (11.6-16.0); LYMPH % 11.5 % (16-45); MEAN CORPUSCULAR HEMOGLOBIN 28.6 pg (27-33); MEAN CORPUSCULAR HGB CONC 31.5 g/dl (32-36); MEAN PLATELET VOLUME 9.2 fl (7.4-10.4); MONO % 7.7 % (0-9); PLATELET COUNT 301 K/uL (130-400); RED BLOOD COUNT 3.98 M/uL (3.80-5.40); RED CELL DISTRIBUTION WIDTH 13.9 % (11.5-14.5); WHITE BLOOD COUNT W/O DIFF 7.8 K/uL (4.2-12.2)
[2019-04-07 09:16] LABS: BLOOD UREA NITROGEN 9 mg/dL (8-23); CREATININE 0.6 mg/dL (0.5-0.9); EST GLOMERULAR FILTRATION RATE > 60 mL/min; GLUCOSE,RANDOM 158 mg/dL (74-109)
--- NOTE | 2019-04-07 09:22 | History & Physical ---
History of Present Illness - Date of Service Date of Service for History & Physical: 04/07/19 - History of Present Illness Admitting Diagnosis: Community acquired pneumonia. Generalized weakness History of Present Illness: PMHx: HLD, osteoporosis, iron def, seizures, depression, anxiety, dementia. ED course 04/06/2019: Pt is very poor historian 03/23 to dementia. She is living at an assisted care facility for her dementia and need for additional care. Per ED and caregiver pt had a fall and complains of generalized weakness x 1 day. She had a cough for several weeks. Her eyes have been "gunky" Abnormal vitals: RR 20, BP 140/67 Abnormal labs: NA 134, WBC 17.7 Imaging: CXR + for reticulonodular infiltrates suggesting atypical PNA, Hip XR neg. Other testing: Flu and UA negative. 04/07/2019: She states that she hit her head when she fell, her caregiver states that when it happened she also stated she hit her head at the time. No CT was done in the ED. She complains of laryngitis x 1 week. CG states that she lost her voice x 2 days. Per CG her mentation is AO x 2, doesn't know the year usually. Eyes are still bothering her. Travel/Exposure Screening - Travel/Exposure Within Last 30 Days Have you traveled within the last 30 days?: No - Travel/Exposure Within Last Year Have you traveled outside the [place] in the last year?: No - Additonal Travel/Exposure Details Have you been exposed to anyone with a communicable illness?: No - Travel Symptoms Symptom Screening: None Review of Systems Constitutional: Reports: Malaise, Weakness. Denies: Chills, Fever, Night sweats Eyes: Reports: Eye discharge. Denies: Eye pain, Vision change ENT: Reports: Other (hoarseness). Denies: Congestion, Ear pain, Epistaxis Respiratory: Reports: Cough. Denies: Dyspnea, Wheezes Cardiovascular: Denies: Chest pain, Dyspnea on exertion Endocrine: Denies: Fatigue, Heat or cold intolerance Gastrointestinal: Denies: Abdominal pain, Nausea, Vomiting Genitourinary: Denies: Incontinence, Retention Musculoskeletal: Reports: Arthralgia. Denies: Back pain Skin: Denies: Bruising, Change in color Neurological: Denies: Abnormal gait, Confusion, Headache, Seizure Psychiatric: Denies: Anxiety Hematological/Lymphatic: Denies: Anemia, Blood Clots Past Medical History - SOCIAL HISTORY Smoking Status: Never smoker - RESPIRATORY Hx Respiratory Disorders: No - CARDIOVASCULAR Hx Cardio Disorders: No - NEURO Hx Neuro Disorders: Yes Hx Seizures: Yes - GI Hx GI Disorders: No - Hx Genitourinary Disorders: No - ENDOCRINE Hx Endocrine Disorders: Yes Hx Thyroid Disease: Yes - MUSCULOSKELETAL Hx Musculoskeletal Disorders: No - PSYCH Hx Psych Problems: Yes Hx Anxiety: Yes Hx Behavior Problems: (Impulsive control disorder) Comment:: mental retardation - HEMATOLOGY/ONCOLOGY Hx Hematology/Oncology Disorders: No Family Medical History Family Hx Comment (NOT TO BE USED IN PLACE OF ITEMS BELOW): unknown H&P Meds/Allergies - Allergies Allergies: Allergies Allergy/AdvReac Type Severity Reaction Status Date / Time No Known Drug Allergies Allergy Verified 08/13/18 11:39 - Active Medications Active Medications: Current Medications Aspirin (Aspirin Chewable) 81 mg PO DAILY [facility] Atorvastatin Calcium (Lipitor) 10 mg PO DAILY [facility] Benzonatate (Tessalon) 200 mg PO TID PRN PRN Reason: COUGH Last Admin: 04/07/19 00:15 Dose: 200 mg Documented by: Carbamide Peroxide (Debrox) 5 drop OT ASDIR [facility] Ferrous Sulfate (Iron) 325 mg PO DAILY [facility] Gentamicin Sulfate () 2 drop OPTH Q4H [facility] Last Admin: 04/07/19 07:32 Dose: 1 drop Documented by: Sodium Chloride () 500 mls @ 0 mls/hr IV .Q0M [facility] Sodium Chloride () 1,000 mls @ 100 mls/hr IV .Q10H [facility] Stop: 04/07/19 09:29 Last Admin: 04/07/19 00:06 Dose: 100 mls/hr Documented by: Azithromycin 500 mg/ Sodium (Chloride) 250 mls @ 250 mls/hr IVPB Q24H [facility] Stop: 04/12/19 21:01 CEFTRIAXONE 1GM/50ML BAG (Ceftriaxone 1 Gm-D5w Bag) 1 gm in 50 mls @ 100 mls/hr IVPB Q24H [facility] Levetiracetam (Keppra) 750 mg PO QAM [facility] Levetiracetam (Keppra) 1,500 mg PO QHS [facility] Levothyroxine Sodium (Synthroid) 75 mcg PO [id number] [facility] Last Admin: 04/07/19 05:38 Dose: 75 mcg Documented by: Loratadine (Claritin) 10 mg PO QAM [facility] Non-Formulary Medication (Alendronate Sodium [Alendronate Sodium]) 70 mg PO WEEKLY [facility] Non-Formulary Medication (Cyproheptadine Hcl [Cyproheptadine Hcl]) 4 mg PO DAILY [facility] Paroxetine HCl (Paxil) 30 mg PO QHS [facility] Senna/Docusate Sodium (Senna Plus) 2 each PO QHS [facility] Trazodone HCl (Desyrel) 100 mg PO QHS [facility] Physical Exam - Vital Signs Vital Signs: Vital Signs - Last 24 Hrs Temp Pulse Pulse Resp BP BP Pulse Ox 04/07/19 07:13 98.4 F 20 160/74 93 L 04/07/19 05:51 98.4 F 88 18 166/75 94 L 04/07/19 00:52 83 22 04/06/19 23:35 97.9 F 83 22 128/60 95 04/06/19 23:30 98.6 F 86 26 H 136/70 97 04/06/19 21:29 98.6 F 88 28 H 140/67 96 - General General Appearance: Alert, Cooperative, Mild distress (coughing), Other (AO x 2 (knows she is in hospital but thinks [facility]), knows name, 1993 for year.) Limitations: No limitations - Head Head exam: Atraumatic, Normocephalic, Normal inspection Head exam detail: negative: Abrasion, Contusion, Aguilar's sign, General tenderness, Hematoma, Laceration - Eye Eye exam: Conjunctival injection (and yellow drainage b/l), Other (Purulent drainage is present to the left medial canthus>right). negative: Periorbital swelling, Periorbital tenderness - ENT ENT exam: Mucous membranes moist, Other (no teeth) Ear exam: Normal external inspection. negative: Auricular trauma Nasal Exam: Normal inspection. negative: Active bleeding, Discharge, Dried blood, Foreign body Mouth exam: Normal external inspection. negative: Drooling, Laceration, Tongue elevation - Neck Neck exam: Normal inspection. negative: Tenderness - Respiratory Respiratory exam: Decreased breath sounds, Rales. negative: Normal lung sounds bilaterally, Respiratory distress, Rhonchi, Stridor - Cardiovascular Cardiovascular Exam: Regular rate, Normal rhythm, Normal heart sounds - GI/Abdominal GI/Abdominal exam: Soft, Hypoactive bowel sounds. negative: Rebound, Rigid, Tenderness - Rectal Rectal exam: Deferred - exam: Deferred - Extremities Extremities exam: Full ROM. negative: Calf tenderness, Pedal edema - Back Back exam: Denies: CVA tenderness (R), CVA tenderness (L) - Neurological Neurological exam: Alert, Other (AOx2) - Psychiatric Psychiatric exam: Normal affect, Normal mood - Skin Skin exam: Other (ecchymosis over the arms b/l). negative: Abrasion, Normal color Type of lesion: negative: abrasion Results - Labs Result Diagrams: 04/07/19 08:42 04/07/19 08:42 Labs Last 24 Hours: Laboratory Results - last 24 hr 04/06/19 04/06/19 04/06/19 21:33 21:42 21:42 WBC 17.7 H RBC 4.29 Hgb 12.1 Hct 38.4 MCV 89.5 MCH 28.2 MCHC 31.5 L RDW 13.9 Plt Count 349 MPV 8.1 Gran % Neutrophils % 84.0 H Band Neutrophils % 1.0 Lymphocytes % Monocytes % Eosinophils % Not Reportable Basophils % Not Reportable Absolute Neutrophils Not Reportable Lymphocytes 6.0 L Monocytes 7.0 Other Cell Type 2.0 Platelet Estimate Normal Sodium 134 L Potassium 3.9 Chloride 96 L Carbon Dioxide 26.0 Anion Gap 12.0 BUN 16 Creatinine 0.7 Estimated GFR > 60 Random Glucose 125 H Calcium 9.0 Total Bilirubin 0.40 AST 19 ALT 18 Alkaline Phosphatase 92 Total Protein 6.8 Albumin 3.5 L Globulin 3.3 Albumin/Globulin Ratio 1.1 Urine Color Yellow Urine Appearance Clear Urine pH 6.0 Ur Specific [place] 1.015 Urine Protein Negative Urine Glucose (UA) Negative Urine Ketones Negative Urine Blood Trace-i Urine Nitrite Negative Urine Bilirubin Negative Urine Urobilinogen 0.2 Ur Leukocyte Esterase Trace H Urine RBC 0 - 2 Urine WBC 0 - 2 U Non-Squamous Epi Cells 0 - 2 Urine Bacteria Few Influenza Type A Ag Influenza Type B Ag 04/06/19 04/07/19 04/07/19 Unknown 08:42 08:42 WBC 7.8 RBC 3.98 Hgb 11.4 L Hct 36.2 MCV 91.0 MCH 28.6 MCHC 31.5 L RDW 13.9 Plt Count 301 MPV 9.2 Gran % 78.4 Neutrophils % Band Neutrophils % Lymphocytes % 11.5 L Monocytes % 7.7 Eosinophils % 2.1 Basophils % 0.3 Absolute Neutrophils 6.08 Lymphocytes Monocytes Other Cell Type Platelet Estimate Sodium 138 Potassium 3.5 Chloride 102 Carbon Dioxide 26.0 Anion Gap 10.0 BUN 9 Creatinine 0.6 Estimated GFR > 60 Random Glucose 158 H Calcium 8.3 L Total Bilirubin AST ALT Alkaline Phosphatase Total Protein Albumin Globulin Albumin/Globulin Ratio Urine Color Urine Appearance Urine pH Ur Specific [place] Urine Protein Urine Glucose (UA) Urine Ketones Urine Blood Urine Nitrite Urine Bilirubin Urine Urobilinogen Ur Leukocyte Esterase Urine RBC Urine WBC U Non-Squamous Epi Cells Urine Bacteria Influenza Type A Ag Negative Influenza Type B Ag Negative VTE H&P Assessment - Risk for VTE Risk for VTE: Yes Risk Level: Moderate Risk Assessment Date: 04/07/19 Risk Assessment Time: 12:37 VTE Orders Placed or Will Be Placed: No VTE Reason for No Prophylaxis: Contraindicated (fall risk and needs results of head CT) Plan - Inpatient Certification Inpatient Certification: Admit to inpatient care: Based on my medical assessment, after consideration of patient's risk factors (age, co-morbidities and patient presenting symptoms and acuity), I expect that this patient will remain in the hospital greater than or equal to two midnights and that the services needed warrant inpatient care because: Patient Risk Factors: [generalized weakness, PNA, age] Estimated length of stay: [3] The patient may reasonably be expected to be discharged or transferred to a hospital within 96 hours after admission to [facility]. Services needed: [IV abx, PT/OT, IV hydration, Oxygen] Post hospital care (if known): [] I certify that my determination is in accordance with my understanding of Medicare requirements for reasonable and necessary inpatient services. 04/07/19 12:37 - Detailed Diagnosis and Plan (1) Atypical pneumonia Current Visit: Yes Status: Acute Base Code: J18.9 - PNEUMONIA, UNSPECIFIED ORGANISM Priority: High Comment: - Treating for CAP with azithro and rocephin. - Gentle IV fluids to replace respiratory losses. - Oxygen prn - Tessalon perles and Robitussin DM for cough. (2) Fall Current Visit: Yes Status: Acute Qualifiers: Encounter type: initial encounter Qualified Code(s): W19.XXXA - Unspecified fall, initial encounter Base Code: W19.XXXA - UNSPECIFIED FALL, INITIAL ENCOUNTER Priority: High Comment: - Head CT needed - PT/OT to eval. - likely 2/2 to infection. (3) Generalized weakness Current Visit: Yes Status: Acute Base Code: R53.1 - WEAKNESS Priority: High Comment: - Review above. (4) Seizures Current Visit: Yes Status: Acute Base Code: R56.9 - UNSPECIFIED CONVULSIONS Priority: High Comment: - Last seizure Dec 2018 - Seizure precautions added. - Keppra as prescribed. (5) Bacterial conjunctivitis Current Visit: Yes Status: Acute Base Code: H10.9 - UNSPECIFIED CONJUNCTIVITIS Priority: High Comment: - Gentimycin drops. (6) Dementia Current Visit: Yes Status: Chronic Qualifiers: Dementia type: unspecified type Dementia behavioral disturbance: without behavioral disturbance Qualified Code(s): F03.90 - Unspecified dementia without behavioral disturbance Base Code: F03.90 - UNSPECIFIED DEMENTIA WITHOUT BEHAVIORAL DISTURBANCE Priority: Medium Comment: - AxO x2, knows name and place usually. Dates are confused. - This is her baseline per CG at facility. (7) Full code status Current Visit: Yes Status: Acute Base Code: Z78.9 - OTHER SPECIFIED HEALTH STATUS Priority: High Comment: - Cathy - her DPOA doesn't know where paperwork is - She does think she should be DNR. - No paperwork at facility or with PCP Sohail Lopes to follow up on this and find out and get paperwork. - Will keep full code until this is done - no proof available - pt is unable to make a coherant decision 2/2 to dementia. (8) DVT prophylaxis Current Visit: Yes Status: Acute Base Code: Z29.9 - ENCOUNTER FOR PROPHYLACTIC MEASURES, UNSPECIFIED Priority: High Comment: - Pt is fall risk - CT head still pending from previous fall - Moderate risk, SCD's recommended at this time. - Disposition Back to adult living facility once sx improved.
[2019-04-07] MEDS: ASPIRIN 81 MG CHEWABLE TABLET PO SCH (09:23)
[2019-04-07] MEDS: LORATADINE 10 MG TABLET PO SCH (09:23)
[2019-04-07] MEDS: LEVETIRACETAM 500 MG TABLET PO SCH ×2 (09:24→21:26)
[2019-04-07] MEDS: FERROUS SULFATE 325 MG TAB PO SCH (09:24)
[2019-04-07] MEDS: ATORVASTATIN 20 MG TABLET PO SCH (09:24)
[2019-04-07] MEDS ORDERED: CYPROHEPTADINE HCL 4 MG PO SCH (10:00)
--- NOTE | 2019-04-07 10:16 | Rehab Evaluation ---
Patient Information - Patient Information Diagnosis: pneunomia, generalized weakness Ordered Treatment: PT Evaluate and Treat Status: Initial Evaluation Past Medical/Surgical Hx: PAST MEDICAL/SURGICAL HISTORY Past Surgical History knee sx Swallow study 06/2018 needs thicken for liquids and puree foods PMH - Respiratory Hx Respiratory Disorders No PMH - Cardiovascular Hx Cardiovascular Disorders No PMH - Neuro Hx Neurological Disorders Yes Hx Seizures Yes PMH - GI Hx Gastrointestinal Disorders No PMH - Hx Genitourinary Disorders No Patient No PMH - Endocrine Hx Endocrine Disorders Yes Hx Thyroid Disease Yes PMH - Musculoskeletal Hx Musculoskeletal Disorders No PMH - Psych Hx Psychiatric Problems Yes Hx Anxiety Yes Hx Behavior Problems Impulsive control disorder Comment: mental retardation PMH - Hematology/Oncology Hx Hematology/Oncology No Disorders Premorbid Status: Detail (Pt. unable to provide history however history obtained per Cullet Washer who contacted the staff of [facility] where pt. resides. Prior to hospitalization pt. was ambulatory to bathroom with walker and had a hospital bed. The patient was receiving Home PT due to frequent falls.) Social History: Detail (The patient resides in [facility] an assisted living facility.) Precautions: Miller, Fall - Time With Patient Total Time Spent With Patient (Min): 30 Treatment Procedures: Detail (Initial Evaluation low complexity.) Subjective Information - Subjective Information Per Patient (The patient coughed intermittently throughout PT eval and complained of her eyes being gunky. Pt. denied pain in her eyes.) Objective Data - Mental Status Patient Orientation: Person (The patient knew her name, birthday month and date. The patient followed simple commands.) - ROM Within normal limits (The patient's LE AROM was functional.) - Strength/Tone Within normal limits (The patient's LE strength was generally 4+ to 5/5.) - Bed Mobility Independent (The patient was independent with supine to sit transfer.) - Transfers Independent (The patient was CG for safety with sit to and from stand transfer.) - Balance Balance Sitting: Good Balance Standing: Fair (The patient used walker for support. Pt's balance was not formally assessed using an objective balance test at this time due to fa tigue with activity.) - Gait Detail (The patient ambulated with front wheeled walker with CG for safety 5 feet x 1. The patient's gait pattern was charecterized by a wide base of support and shuffling short steps. The patient exhibited shortness of breath after ambulating. The patient was left up in chair with call light in reach and chair alarm set and tray place in front of pt.) Therapy Assessment - Therapy Assessment Detail (The patient exhibits decreased endurance for physical activity and CG for safety with transfers and ambulation. The patient would benefit from inpt. PT to increase ambulation endurance and for assessment of balance. Continuation of Home PT is recommended when pt. is discharged from [facility].) Problem List - Problem List Physical Therapy Problem List: Detail (1) CG with ambulation and transfers for safety 2) Decreased endurance for physical activity( shortness of breath with ambulation) 3) Impaired balance in standing) Goals - Goals Physical Therapy Goals: 1) Evaluate the patient's balance using Objective balance scale. 2) The patient will ambulate household distances with front wheeled walker with supervision for safety and minimal to no shortness of breath. 3) The patient will require supervision with sit to stand transfers. Plan - Plan Physical Therapy Plan: PT daily for gait training, transfer training and balance exercises.
--- NOTE | 2019-04-07 10:17 | Rehab Evaluation ---
Patient Information - Patient Information Diagnosis: pneumonia, generalized weakness Ordered Treatment: OT Evaluate and Treat Status: Initial Evaluation Surgery: No Past Medical/Surgical Hx: PAST MEDICAL/SURGICAL HISTORY Past Surgical History knee sx Swallow study 06/2018 needs thicken for liquids and puree foods PMH - Respiratory Hx Respiratory Disorders No PMH - Cardiovascular Hx Cardiovascular Disorders No PMH - Neuro Hx Neurological Disorders Yes Hx Seizures Yes PMH - GI Hx Gastrointestinal Disorders No PMH - Hx Genitourinary Disorders No Patient No PMH - Endocrine Hx Endocrine Disorders Yes Hx Thyroid Disease Yes PMH - Musculoskeletal Hx Musculoskeletal Disorders No PMH - Psych Hx Psychiatric Problems Yes Hx Anxiety Yes Hx Behavior Problems Impulsive control disorder Comment: mental retardation PMH - Hematology/Oncology Hx Hematology/Oncology No Disorders Premorbid Status: Detail (Pt resides at [facility] per chart. No other premorbid information is available at the time of this evaluation. Pt is unable to answer questions due to impaired cognition.) Precautions: [place], Fall, Other (Decreased cognitive status) - Time With Patient Total Time Spent With Patient (Min): 35 Treatment Procedures: Detail (OT eval low complexity) Subjective Information - Subjective Information Other (Per medical record) Objective Data - Pain Pain Present: No (Pt did not complain of pain during evaluation.) - Mental Status Patient Orientation: Person (Pt oriented to self, birthday month and day and "hospital". She was unsure which hospital or who the current president is. She was able to follow all commands and participate in evaluation.) - Visual Perception Appears within normal limits for therapeutic activities (Appears WNL although pt c/o watery eye.) - ROM Within normal limits (Phuc UE AROM grossly WNL) - Strength/Tone Within normal limits (Phuc UE strength grossly 4/5) - Coordination Appears within normal limits for therapeutic activities - Bed Mobility Independent (Pt was Ind with supine to sit.) - Transfers Needs Assist (CG assist with sit to stand from EOB.) - Balance Balance Sitting: Good Balance Standing: Fair - Sensation Intact - Gait Detail (Pt ambulated several steps from EOB to recliner with 2 wheeled walker and CG assist.) - ADL's/IADL's Detail (Pt attempted to don tennis shoes but was unable to due to having thick slipper socks on. Other self cares were not formally assessed due to pt fatigue and coughing.) Therapy Assessment - Therapy Assessment Detail (Pt presents with significant weakness and shortness of breath due to constant coughing. Need to further assess her Ind with self cares.) Problem List - Problem List Occupational Therapy Problem List: Detail (1. Decreased activity tolerance and increased shortness of breath with activity. 2. Need to further assess self cares.) Goals - Goals Occupational Therapy Goals: 1. Pt will tolerate 10 minutes of activity while performing modified breathing techniques appropriately. 2. Pt will be Ind with total body dressing while using breathing techniques. Prognosis - Prognosis Moderate Plan - Plan Occupational Therapy Plan: OT 2-4 times per week.
[2019-04-07] MEDS ORDERED: GUAIFENESIN/D-METH. 10 ML UDC PO SCH (11:30)
[2019-04-07] MEDS ORDERED: POTASSIUM CHLORIDE 10 MEQ TAB PO ONE (11:36)
--- NOTE | 2019-04-07 15:16 | CT SCAN REPORT ---
EXAMINATION: CT Head without IV Contrast EXAM DATE: 04/07/2019 2:41 PM TECHNIQUE: Standard protocol CT images of the head were obtained without intravenous contrast. Yang l and sagittal reconstructed images were created. INDICATION: fall hit head COMPARISON: 08/13/2018 HAND DOMINANCE: Unknown. ENCOUNTER: Not applicable FINDINGS: Globes and orbits appear unremarkable. Visualized paranasal sinuses mastoid air cells are clear. Bila teral nasal bone fractures appear similar compared to prior exam. No acute calvarial fracture is evid ent. No intracranial hemorrhage. Jeanne hole right temporal calvarium. No mass, mass effect, or midline shif t. Ventricles are not enlarged. Volume loss greater in the cerebellum than cerebral hemispheres. Mild degree of hypodensity in the supratentorial brain suggestive of chronic small vessel ischemic change s. IMPRESSION: 1. No intracranial hemorrhage evident. 2. Bilateral nasal bone fractures appear similar compared to prior exam. No acute calvarial fractur e is evident. Dictated by: Mark Jackson DO on 04/07/2019 3:11 PM. .
[2019-04-07] MEDS: GUAIFENESIN/D-METH. 10 ML UDC PO SCH (17:55)
[2019-04-07] MEDS ORDERED: AZITHROMYCIN 500 MG in 0.9 % SODIUM CHLORIDE 250ML 250 ML IVPB SCH (21:00)
[2019-04-07] MEDS: TRAZODONE 50 MG TABLET PO SCH (21:26)
[2019-04-07] MEDS: PAROXETINE HCL 10 MG TABLET PO SCH (21:26)
[2019-04-07] MEDS: SENNOSIDES/DOCUSATE SODIUM UD CAPSULE PO SCH (21:27)
[2019-04-07] MEDS: AZITHROMYCIN 500 MG TABLET PO SCH (21:27)
[2019-04-07] MEDS: CEFTRIAXONE 1GM/50ML BAG 1 GM/50 ML BAG IVPB SCH (21:32)
[2019-04-08] MEDS: GENTAMICIN SULFATE 0.3% OPTH 5 ML BTL OPTH SCH ×7 (00:29→23:35)
[2019-04-08] MEDS: GUAIFENESIN/D-METH. 10 ML UDC PO SCH ×4 (00:30→18:38)
[2019-04-08] MEDS: LEVOTHYROXINE SODIUM 75 MCG TABLET PO SCH (05:12)
[2019-04-08 07:12] LABS: ABSOLUTE NEUTROPHIL COUNT 6.33; BASO % 0.2 % (0-6); EOS % 3.9 % (0-6); HEMATOCRIT 36.2 % (35.0-47.0); HEMOGLOBIN 11.1 gm/dl (11.6-16.0); MEAN CORPUSCULAR HGB CONC 30.7 g/dl (32-36); MEAN PLATELET VOLUME 8.6 fl (7.4-10.4); MONO % 12.9 % (0-9); PLATELET COUNT 333 K/uL (130-400); RED BLOOD COUNT 3.98 M/uL (3.80-5.40); RED CELL DISTRIBUTION WIDTH 13.6 % (11.5-14.5); WHITE BLOOD COUNT W/O DIFF 9.1 K/uL (4.2-12.2)
[2019-04-08 07:18] LABS: MEAN CORPUSCULAR HEMOGLOBIN 27.8 pg (27-33)
[2019-04-08 07:24] LABS: BLOOD UREA NITROGEN 6 mg/dL (8-23); CREATININE 0.5 mg/dL (0.5-0.9); EST GLOMERULAR FILTRATION RATE > 60 mL/min; GLUCOSE,RANDOM 128 mg/dL (74-109)
[2019-04-08] MEDS: LORATADINE 10 MG TABLET PO SCH (09:03)
[2019-04-08] MEDS: ASPIRIN 81 MG CHEWABLE TABLET PO SCH (09:03)
[2019-04-08] MEDS: FERROUS SULFATE 325 MG TAB PO SCH (09:03)
[2019-04-08] MEDS: LEVETIRACETAM 500 MG TABLET PO SCH ×2 (09:04→21:41)
[2019-04-08] MEDS: ATORVASTATIN 20 MG TABLET PO SCH (09:04)
[2019-04-08] MEDS: BENZONATATE 100 MG CAPSULE PO PRN (09:05)
--- NOTE | 2019-04-08 09:49 | Occupational Therapy Tx Note ---
Occupational Therapy Tx Note - Treatment Note Tolerated: Good Total Time Spent With Patient: 20 (ADL) Occupational Therapy Treatment Note: Detail (S: Pt resting in bed. O: Pt agreeable to OT. Supine to sit Indly. Sit to stand and amb to sink with 2 wheeled walker and verbal cues. Pt completed oral hygiene, washing face and combing hair with SBA and verbal cues to remain on task. Pt amb back to EOB with 2 wheeled walker and CG assist. Sit to supine Indly and pt able to scoot up in bed Indly. Pt left with HOB upright and with bed alarm on. A: Pt requires verbal cues for grooming/hygiene but physically Ind, improved Ind with functional mobility and less coughing this am.) Occupational Therapy Problem List: Detail (1. Decreased activity tolerance and increased shortness of breath with activity. 2. Need to further assess self cares.) Occupational Therapy Goals: 1. Pt will tolerate 10 minutes of activity while performing modified breathing techniques appropriately. 2. Pt will be Ind with total body dressing while using breathing techniques. Prognosis: Good Occupational Therapy Plan: OT 2-4 times per week.
--- NOTE | 2019-04-08 10:22 | Physician Progress Note ---
Subjective - Date Date of Physician Progress Note: 04/08/19 - Subjective Subjective Comment: Patient reports continued coughing, worsening with meals. No additional concerns today. Objective - Vital Signs Vital Signs: Vital Signs - Last 24 Hrs Temp Pulse Pulse Resp BP BP BP 04/08/19 09:00 87 22 04/08/19 08:48 98.5 F 87 22 151/60 04/08/19 04:00 97.7 F 84 20 144/83 04/07/19 21:00 91 H 20 04/07/19 20:00 98.3 F 91 H 20 150/67 04/07/19 16:00 84 24 04/07/19 12:40 83 22 157/62 04/07/19 11:09 98.4 F 160/74 04/07/19 10:23 84 24 Pulse Ox 04/08/19 09:00 04/08/19 08:48 97 04/08/19 04:00 92 L 04/07/19 21:00 04/07/19 20:00 95 04/07/19 16:00 94 L 04/07/19 12:40 94 L 04/07/19 11:09 04/07/19 10:23 93 L - General General Appearance: Alert, Cooperative, No acute distress, Other (AO x 2 (knows she is in hospital but thinks [facility]), knows name, 1993 for year.) Limitations: Altered mental status (per baseline) - Head Head exam: Atraumatic, Normocephalic, Normal inspection Head exam detail: negative: Abrasion, Contusion, Aguilar's sign, General tenderness, Hematoma, Laceration - Eye Eye exam: Conjunctival injection (and yellow drainage b/l), Other (Purulent drainage is present to the left medial canthus>right). negative: Periorbital swelling, Periorbital tenderness - ENT ENT exam: Mucous membranes moist, Other (no teeth) Ear exam: Normal external inspection. negative: Auricular trauma Nasal Exam: Normal inspection. negative: Active bleeding, Discharge, Dried blood, Foreign body Mouth exam: Normal external inspection. negative: Drooling, Laceration, Tongue elevation - Neck Neck exam: Normal inspection. negative: Tenderness - Respiratory Respiratory exam: Decreased breath sounds. negative: Normal lung sounds bilaterally, Respiratory distress, Rhonchi, Stridor - Cardiovascular Cardiovascular Exam: Regular rate, Normal rhythm, Normal heart sounds Peripheral Pulses: 2+: Radial (R), Radial (L), Dorsalis Pedis (R), Dorsalis Pedis (L) - GI/Abdominal GI/Abdominal exam: Soft, Hypoactive bowel sounds. negative: Rebound, Rigid, Tenderness - Rectal Rectal exam: Deferred - exam: Deferred - Extremities Extremities exam: Full ROM. negative: Calf tenderness, Pedal edema - Back Back exam: Denies: CVA tenderness (R), CVA tenderness (L) - Neurological Neurological exam: Alert, Other (AOx2) - Psychiatric Psychiatric exam: Normal affect, Normal mood - Skin Skin exam: Other (ecchymosis over the arms b/l). negative: Abrasion, Normal color Type of lesion: negative: abrasion Assessment and Plan - Assessment and Plan (1) Atypical pneumonia Current Visit: Yes Status: Acute Base Code: J18.9 - PNEUMONIA, UNSPECIFIED ORGANISM Priority: High Comment: 04/08/19: - CXR: reticulonodular pattern in lower lobes consistent with atypical pneumonia - Treating for CAP with azithro and rocephin. - Gentle IV fluids to replace respiratory losses. - Oxygen prn - Tessalon perles and Robitussin DM for cough. - Consider aspiration pneumonia as a cause, due to cough worsening with eating - Speech/swallow eval ordered - Pureed foods and thickened liquids at this time (2) Bacterial conjunctivitis Current Visit: Yes Status: Acute Base Code: H10.9 - UNSPECIFIED CONJUNCTIVITIS Priority: High Comment: 04/08/19: - Symptoms bilateral - Gentimycin drops opth (3) Fall Current Visit: Yes Status: Acute Qualifiers: Encounter type: initial encounter Qualified Code(s): W19.XXXA - Unspecified fall, initial encounter Base Code: W19.XXXA - UNSPECIFIED FALL, INITIAL ENCOUNTER Priority: High Comment: 04/08/19: - Head CT: no intracranial hemorrhage - PT/OT to eval - likely 2/2 to infection - Fall precautions in place with bed alarm (4) Generalized weakness Current Visit: Yes Status: Acute Base Code: R53.1 - WEAKNESS Priority: High Comment: 04/08/19: - PT/OT to eval - Fall precautions in place (5) Seizures Current Visit: Yes Status: Acute Base Code: R56.9 - UNSPECIFIED CONVULSIONS Priority: High Comment: 04/08/19: - Last seizure Dec 2018 - Seizure precautions maintained - Keppra as prescribed (6) Dementia Current Visit: Yes Status: Chronic Qualifiers: Dementia type: unspecified type Dementia behavioral disturbance: without behavioral disturbance Qualified Code(s): F03.90 - Unspecified dementia without behavioral disturbance Base Code: F03.90 - UNSPECIFIED DEMENTIA WITHOUT BEHAVIORAL DISTURBANCE Priority: Medium Comment: 04/08/19: - AxO x2, knows name and place usually. Dates are confused - This is her baseline per CG at facility - Lives at [facility] (7) DVT prophylaxis Current Visit: Yes Status: Acute Base Code: Z29.9 - ENCOUNTER FOR PROPHYLACTIC MEASURES, UNSPECIFIED Priority: High Comment: 04/08/19: - Pt is fall risk, avoiding lovenox at this time - Moderate risk - SCD's while in bed (8) Full code status Current Visit: Yes Status: Acute Base Code: Z78.9 - OTHER SPECIFIED HEALTH STATUS Priority: High Comment: 04/08/19: - Cathy - her DPOA doesn't know where DPOA paperwork is - She does think she should be DNR. - No paperwork at facility or with PCP - Marianne to follow up on this and find out and get paperwork. - Will keep full code until this is done - no proof available - pt is unable to make a coherant decision 03/23 to dementia. Results - Labs Result Diagrams: 04/08/19 06:20 04/08/19 06:20 Labs Last 24 Hours: Laboratory Results - last 24 hr 04/08/19 04/08/19 06:20 06:20 WBC 9.1 RBC 3.98 Hgb 11.1 L Hct 36.2 MCV 91.0 MCH 27.8 MCHC 30.7 L RDW 13.6 Plt Count 333 MPV 8.6 Gran % 70.0 Lymphocytes % 13.0 L Monocytes % 12.9 H Eosinophils % 3.9 Basophils % 0.2 Absolute Neutrophils 6.33 Sodium 140 Potassium 3.6 Chloride 105 Carbon Dioxide 26.0 Anion Gap 9.0 BUN 6 L Creatinine 0.5 Estimated GFR > 60 Random Glucose 128 H Calcium 8.5 L DVT/PE Assessment - Risk for VTE Risk for VTE: No Risk Level: Moderate Risk Assessment Date: 04/07/19 Risk Assessment Time: 12:37 VTE Orders Placed or Will Be Placed: No VTE Reason for No Prophylaxis: Contraindicated (fall risk and needs results of head CT) - Active Medicaitons Current Medications: Current Medications Aspirin (Aspirin Chewable) 81 mg PO DAILY [facility] Last Admin: 04/08/19 09:03 Dose: 81 mg Documented by: Atorvastatin Calcium (Lipitor) 10 mg PO DAILY [facility] Last Admin: 04/08/19 09:04 Dose: 10 mg Documented by: Azithromycin (Zithromax) 500 mg PO QHS [facility] Last Admin: 04/07/19 21:27 Dose: 500 mg Documented by: Benzonatate (Tessalon) 200 mg PO TID PRN PRN Reason: COUGH Last Admin: 04/08/19 09:05 Dose: 200 mg Documented by: Ferrous Sulfate (Iron) 325 mg PO DAILY [facility] Last Admin: 04/08/19 09:03 Dose: 325 mg Documented by: Gentamicin Sulfate () 2 drop OPTH Q4H [facility] Last Admin: 04/08/19 07:52 Dose: 1 drop Documented by: Guaifenesin (Robitussin Dm) 15 ml PO Q6HR [facility] Last Admin: 04/08/19 05:12 Dose: 15 ml Documented by: Sodium Chloride () 500 mls @ 0 mls/hr IV .Q0M [facility] CEFTRIAXONE 1GM/50ML BAG (Ceftriaxone 1 Gm-D5w Bag) 1 gm in 50 mls @ 100 mls/hr IVPB Q24H [facility] Last Infusion: 04/07/19 22:17 Dose: Infused Documented by: Levetiracetam (Keppra) 750 mg PO QAM [facility] Last Admin: 04/08/19 09:04 Dose: 750 mg Documented by: Levetiracetam (Keppra) 1,500 mg PO QHS [facility] Last Admin: 04/07/19 21:26 Dose: 1,500 mg Documented by: Levothyroxine Sodium (Synthroid) 75 mcg PO [id number] [facility] Last Admin: 04/08/19 05:12 Dose: 75 mcg Documented by: Loratadine (Claritin) 10 mg PO QAM [facility] Last Admin: 04/08/19 09:03 Dose: 10 mg Documented by: Paroxetine HCl (Paxil) 30 mg PO QHS [facility] Last Admin: 04/07/19 21:26 Dose: 30 mg Documented by: Senna/Docusate Sodium (Senna Plus) 2 each PO QHS [facility] Last Admin: 04/07/19 21:27 Dose: 2 each Documented by: Trazodone HCl (Desyrel) 100 mg PO QHS [facility] Last Admin: 04/07/19 21:26 Dose: 100 mg Documented by: CATINA Plan - Labs Result Diagrams: 04/08/19 06:20 04/08/19 06:20
--- NOTE | 2019-04-08 14:36 | Physical Therapy Tx Note ---
Physical Therapy Tx Note - Treatment Note Total Time Spent With Patient: 15 Physical Therapy Tx Note: Detail (The patient was up in chair when PT arrived. The patient was independent /supervision with sit to and from stand transfer. The patient ambulated with front wheeled walker a distance of 45 feet x 1 with CG and verbal cues for proper technique ie: not placing walker out too far. The patient stated she was fatigued after ambulating and requested to go back to bed and declined further PT. The patient required verbal cues to keep her walker with her for stand to sit transfer. The patient was independent with sit to supine . The patient was left in bed with bed alarm set.) Physical Therapy Problem List: Detail (1) CG with ambulation and transfers for safety 2) Decreased endurance for physical activity( shortness of breath with ambulation) 3) Impaired balance in standing) Physical Therapy Goals: 1) Evaluate the patient's balance using Objective balance scale. 2) The patient will ambulate household distances with front wheeled walker with supervision for safety and minimal to no shortness of breath. 3) The patient will require supervision with sit to stand transfers. Physical Therapy Plan: PT daily for gait training, transfer training and balance exercises.
[2019-04-08] MEDS ORDERED: LIDOCAINE 1% MDV (10MG/ML) 20ML VIAL INH PRN (16:12)
--- NOTE | 2019-04-08 18:06 | Swallow Evaluation ---
Swallow Evaluation - General Patient Information Date of Assessment: 04/08/19 Referral Date: 04/08/19 Date of Onset: June 2018 Admitting Diagnosis: Pneumonia, Unspecified organism Medical History: Patient is a poor historian due to cognitive impairment. Per business support manager Jodie at [facility] patient was last seen by a speech-language pathologist in June of 2018 through [facility] ([facility]) where her diet was changed to nectar thick liquids and pureed foods. Per Jodie the patient is now consuming Honey Thick Liquids and pureed foods. Patient had a swallow study at [facility] in 2019 however this investigative reporter was unable to gain access to that report at this time. Current Feeding Status: All oral Cognitive Status: Decreased, oriented to self. Oral Motor Assessment - Lips Lips at Rest: Normal Function Lip Retraction: Normal Function Lip Protrusion: Normal Function - Tongue Tongue at Rest: Normal Function Tongue Protrusion: Normal Function Tongue Elevation: Abnormal Function Tongue Lateralization: Abnormal Function - Velum Velum at Rest: Normal Function Velum Elevation: Normal Function - Additional Information Oral Sensitivity: Decreased Volitional Cough/Throat Clearing: Weak, aphonic. Other Oral Motor Comment: Patient only speaks in a whisper, unable to elicit phonation. Sustained phonation attempts were met with consistent aphonia. Swallow Assessment - Oral Preparatory Phase Phase - Liquid: Normal Function Phase - Puree: Normal Function - Oral Phase Phase - Liquid: Normal Function Phase - Puree: Normal Function Phase - Solid: Normal Function - Pharyngeal Phase Phase - Liquid: Abnormal Function Phase - Puree: Normal Function Phase - Solid: Abnormal Function - Additional Information Swallow Assessment Comment: Patient presents with significant barking type cough both in time and out of time of eating. Patient volitional is weak but functional cough is stronger. Patient is able to follow single step commands but with intermittent consistency. Patient benefits from assistance with positioning and rate. No straws and modified consistencies: Honey Thick Liquids, Pureed foods. This investigative reporter recommends this patient follow up with her familiar speech-language pathologist through [facility] as well as consideration of a repeat visualization of her swallow if her pneumonia returns to rule out silent aspiration and or aspiration of residues. Patient voice is nearly aphonic which may also be able to be explained and or addressed by her primary speech-language pathologist. Plan for Treatment - Diagnosis/Clinical Impression Diagnosis: Oropharyngeal dysphagia Clinical Impression: Patient presents with poor airway protection and suspected aspiration pneumonia. Patient has an existing modified diet of unknown etiology but she does have a familiar care team who are aware of her restrictions. Patient benefits from Honey Thick Liquids and Pureed foods at this time and no straws. - Consistency Modification Liquid Modification: Honey Modification Comment: Pureed foods - Behavior Modification Behavior Modification: Small Sips, Position upright for all oral intake - Additional Plan Details Plan for Treatment: Follow up with familiar therapist. Videofluroscopic Swallow Study Ordered: Yes (Requested by this investigative reporter. ) Diagnosis/Recommendation Discussed With: Nurse (Unable to discuss with patient due to cognition. Nursing aware of recommendations for diet and follow up care.)
[2019-04-08] MEDS: AZITHROMYCIN 500 MG TABLET PO SCH (21:40)
[2019-04-08] MEDS: SENNOSIDES/DOCUSATE SODIUM UD CAPSULE PO SCH (21:40)
[2019-04-08] MEDS: PAROXETINE HCL 10 MG TABLET PO SCH (21:41)
[2019-04-08] MEDS: TRAZODONE 50 MG TABLET PO SCH (21:41)
[2019-04-08] MEDS: CEFTRIAXONE 1GM/50ML BAG 1 GM/50 ML BAG IVPB SCH (21:45)
[2019-04-08] MEDS ORDERED: ACETAMINOPHEN 325 MG TAB PO PRN (21:52)
[2019-04-09] MEDS: GUAIFENESIN/D-METH. 10 ML UDC PO SCH ×3 (00:54→12:00)
[2019-04-09] MEDS: GENTAMICIN SULFATE 0.3% OPTH 5 ML BTL OPTH SCH ×3 (04:13→12:07)
[2019-04-09] MEDS: LEVOTHYROXINE SODIUM 75 MCG TABLET PO SCH (05:16)
[2019-04-09 07:12] LABS: HEMATOCRIT 39.8 % (35.0-47.0); HEMOGLOBIN 12.5 gm/dl (11.6-16.0); MEAN CORPUSCULAR HEMOGLOBIN 28.3 pg (27-33); MEAN CORPUSCULAR HGB CONC 31.4 g/dl (32-36); MEAN PLATELET VOLUME 8.5 fl (7.4-10.4); PLATELET COUNT 338 K/uL (130-400); RED BLOOD COUNT 4.42 M/uL (3.80-5.40); RED CELL DISTRIBUTION WIDTH 13.4 % (11.5-14.5); WHITE BLOOD COUNT W/O DIFF 8.3 K/uL (4.2-12.2)
[2019-04-09 07:45] LABS: BLOOD UREA NITROGEN 9 mg/dL (8-23); CREATININE 0.5 mg/dL (0.5-0.9); EST GLOMERULAR FILTRATION RATE > 60 mL/min; GLUCOSE,RANDOM 113 mg/dL (74-109)
--- NOTE | 2019-04-09 10:00 | Discharge Summary ---
Providers Discharge Summary Date: 04/09/19 Date of admission: 04/06/19 23:29 Expected Date of Discharge: 04/09/19 Attending physician: LOBITO CORBETT M.D. Physical Exam - Vital Signs Vital Signs: Vital Signs - Last 24 Hrs Temp Pulse Resp BP BP Pulse Ox 04/09/19 09:16 97.8 F 81 17 157/75 92 L 04/09/19 04:00 98.1 F 81 16 169/73 94 L 04/09/19 00:00 87 18 151/94 92 L 04/08/19 21:00 84 18 04/08/19 20:00 98.2 F 84 18 155/71 92 L 04/08/19 13:37 98.5 F 90 22 140/87 92 L - General General Appearance: Alert, Cooperative, No acute distress, Other (AO x 2 (knows she is in hospital but thinks [place]), knows name, 1993 for year.) Limitations: Altered mental status (per baseline) - Head Head exam: Atraumatic, Normocephalic, Normal inspection Head exam detail: negative: Abrasion, Contusion, Aguilar's sign, General t enderness, Hematoma, Laceration - Eye Eye exam: Conjunctival injection (and yellow drainage b/l), Other (Purulent drainage is present to the left medial canthus>right). negative: Periorbital swelling, Periorbital tenderness - ENT ENT exam: Mucous membranes moist, Other (no teeth) Ear exam: Normal external inspection. negative: Auricular trauma Nasal Exam: Normal inspection. negative: Active bleeding, Discharge, Dried blood, Foreign body Mouth exam: Normal external inspection. negative: Drooling, Laceration, Tongue elevation - Neck Neck exam: Normal inspection. negative: Tenderness - Respiratory Respiratory exam: Decreased breath sounds. negative: Normal lung sounds bilaterally, Respiratory distress, Rhonchi, Stridor - Cardiovascular Cardiovascular Exam: Regular rate, Normal rhythm, Normal heart sounds Peripheral Pulses: 2+: Radial (R), Radial (L), Dorsalis Pedis (R), Dorsalis Pedis (L) - GI/Abdominal GI/Abdominal exam: Soft, Hypoactive bowel sounds. negative: Rebound, Rigid, Tenderness - Rectal Rectal exam: Deferred - exam: Deferred - Extremities Extremities exam: Full ROM. negative: Calf tenderness, Pedal edema - Back Back exam: Denies: CVA tenderness (R), CVA tenderness (L) - Neurological Neurological exam: Alert, Other (AOx2) - Psychiatric Psychiatric exam: Normal affect, Normal mood - Skin Skin exam: Other (ecchymosis over the arms b/l). negative: Abrasion, Normal color Type of lesion: negative: abrasion Hospitalization - Hospitalization Admission Diagnosis: Community acquired pneumonia. Generalized weakness - Problem List/Discharge Diagnosis (1) Atypical pneumonia Current Visit: Yes Status: Acute Base Code: J18.9 - PNEUMONIA, UNSPECIFIED ORGANISM Comment: 04/09/19: - CXR: reticulonodular pattern in lower lobes consistent with atypical pneumonia - Treating for CAP with azithro and rocephin. - Tessalon perles and Robitussin DM for cough. - Consider aspiration pneumonia as a cause, due to cough worsening with eating - Speech/swallow eval ordered - Continue with Azithromycin x 5 days and Cefdinir x 10 days upon discharge (2) Cough Current Visit: Yes Status: Acute Base Code: R05 - COUGH Comment: 04/09/19: -Cough > 1 month -Possibly due to pneumonia, will continue current treatment -Tessalon perles TID and Robitussin DM prn -Speech/swallow eval 04/08/19 to evaluate for aspiration: unable to rule out silent aspiration. Recommends honey-thick liquids, pureed foods, and following- up with speech-language pathologist through [facility] and repeat exam if symptoms persist or worsen (3) Bacterial conjunctivitis Current Visit: Yes Status: Acute Base Code: H10.9 - UNSPECIFIED CONJUNCTIVITIS Comment: 04/09/19: - Symptoms bilateral - Gentimycin drops opth to be continued x 10 days upon discharge (4) Fall Current Visit: Yes Status: Acute Discharge Diagnosis: Encounter type: initial encounter Qualified Code(s): W19.XXXA - Unspecified fall, initial encounter Base Code: W19.XXXA - UNSPECIFIED FALL, INITIAL ENCOUNTER Comment: 04/09/19: - Head CT: no intracranial hemorrhage - PT/OT to eval - likely 2/ to infection - Fall precautions in place with bed alarm (5) Generalized weakness Current Visit: Yes Status: Acute Base Code: R53.1 - WEAKNESS Comment: 04/09/19: - PT/OT to eval - Fall precautions in place - Improving at this time (6) Seizures Current Visit: Yes Status: Acute Base Code: R56.9 - UNSPECIFIED CONVULSIONS Comment: 04/09/19: - Last seizure Dec 2018 - Seizure precautions maintained - Keppra as prescribed (7) Dementia Current Visit: Yes Status: Chronic Discharge Diagnosis: Dementia type: unspecified type Dementia behavioral disturbance: without behavioral disturbance Qualified Code(s): F03.90 - Unspecified dementia without behavioral disturbance Base Code: F03.90 - UNSPECIFIED DEMENTIA WITHOUT BEHAVIORAL DISTURBANCE Comment: 04/09/19: - AxO x2, knows name and place usually. Dates are confused - This is her baseline per CG at facility - [facility] at [facility] (8) DVT prophylaxis Current Visit: Yes Status: Acute Base Code: Z29.9 - ENCOUNTER FOR PROPHYLACTIC MEASURES, UNSPECIFIED Comment: 04/09/19: - Pt is fall risk, avoiding lovenox at this time - Moderate risk - SCD's while in bed (9) Full code status Current Visit: Yes Status: Acute Base Code: Z78.9 - OTHER SPECIFIED HEALTH STATUS Comment: 04/09/19: - Cathy - her DPOA doesn't know where DPOA paperwork is - She does think she should be DNR. - No paperwork at facility or with PCP - Marianne to follow up on this and find out and get paperwork. - Will keep full code until this is done - no proof available - pt is unable to make a coherant decision /2 to dementia. - Hospitalization Course Disposition: [facility] Hospital Course: PMHx: HLD, osteoporosis, iron def, seizures, depression, anxiety, dementia. ED course 04/06/2019: Pt is very poor historian 2/2 to dementia. She is living at an assisted care facility for her dementia and need for additional care. Per ED and caregiver pt had a fall and complains of generalized weakness x 1 day. She had a cough for several weeks. Her eyes have been "gunky" Abnormal vitals: RR 20, BP 140/67 Abnormal labs: NA 134, WBC 17.7 Imaging: CXR + for reticulonodular infiltrates suggesting atypical PNA, Hip XR neg. Other testing: Flu and UA negative. 04/07/2019: She states that she hit her head when she fell, her caregiver states that when it happened she also stated she hit her head at the time. No CT was done in the ED. She complains of laryngitis x 1 week. CG states that she lost her voice x 2 days. Per CG her mentation is AO x 2, doesn't know the year usually. Eyes are still bothering her. 04/09/19: -Patient remains A&O x 2, at her baseline mentation -Is not requiring supplemental oxygen, afebrile, no elevations in WBC -Will continue with Azithromycin x 5 days and Cefdinir for 8 days (total of 10 days) -Continue Gentamycin drops for conjunctivitis -Speech/swallow eval: unable to rule out silent aspiration. Recommends honey- thick liquids, pureed foods, and following-up with speech-language pathologist through [facility] and repeat exam if symptoms persist or worsen -Return to [facility] and follow-up with PCP in 7-10 days Procedures: Imaging and X-Rays 04/06/19 21:33 CHEST 2 VIEWS [RAD] Stat HIP,UNILAT, 2-3 VIEW LEFT [RAD] Stat 04/07/19 12:18 HEAD WO CONTRAST [CT] Stat Abnormal Labs: Abnormal Lab Results 04/06/19 04/06/19 04/06/19 Range/Units 21:33 21:42 21:42 WBC 17.7 H (4.2-12.2) K/uL Hgb (11.6-16.0) gm/dl MCHC 31.5 L (32-36) g/dl Neutrophils % 84.0 H (47-80) % Lymphocytes % (16-45) % Monocytes % (0-9) % Lymphocytes 6.0 L (16-45) % Monocytes (0-9) % Sodium 134 L (136-145) mmol/L Potassium (3.4-4.5) mmol/L Chloride 96 L (98-107) mmol/L BUN (8-23) mg/dL Random Glucose 125 H (74-109) mg/dL Calcium (8.8-10.2) mg/dL Albumin 3.5 L (4.0-5.0) g/dL Ur Leukocyte Esterase Trace H (NEGATIVE) 04/07/19 04/07/19 04/08/19 Range/Units 08:42 08:42 06:20 WBC (4.2-12.2) K/uL Hgb 11.4 L 11.1 L (11.6-16.0) gm/dl MCHC 31.5 L 30.7 L (32-36) g/dl Neutrophils % (47-80) % Lymphocytes % 11.5 L 13.0 L (16-45) % Monocytes % 12.9 H (0-9) % Lymphocytes (16-45) % Monocytes (0-9) % Sodium (136-145) mmol/L Potassium (3.4-4.5) mmol/L Chloride (98-107) mmol/L BUN (8-23) mg/dL Random Glucose 158 H (74-109) mg/dL Calcium 8.3 L (8.8-10.2) mg/dL Albumin (4.0-5.0) g/dL Ur Leukocyte Esterase (NEGATIVE) 04/08/19 04/09/19 04/09/19 Range/Units 06:20 06:00 06:20 WBC (4.2-12.2) K/uL Hgb (11.6-16.0) gm/dl MCHC 31.4 L (32-36) g/dl Neutrophils % (47-80) % Lymphocytes % (16-45) % Monocytes % (0-9) % Lymphocytes 14.0 L (16-45) % Monocytes 17.0 H (0-9) % Sodium (136-145) mmol/L Potassium 3.3 L (3.4-4.5) mmol/L Chloride (98-107) mmol/L BUN 6 L (8-23) mg/dL Random Glucose 128 H 113 H (74-109) mg/dL Calcium 8.5 L (8.8-10.2) mg/dL Albumin (4.0-5.0) g/dL Ur Leukocyte Esterase (NEGATIVE) Condition at Discharge: (2) Stable Discharge Medications - Discharge Medications Prescriptions: Azithromycin [Zithromax] 500 mg PO QHS #3 tab Cefdinir 300 mg PO BID #16 capsule Gentamicin Sulfate 1 drop EACH EYE Q6H #1 bottle Dextromethorphan Hb/Doxylamine [Robitussin Nighttime Cough Dm] 10 ml PO Q6H PRN #400 ml PRN Reason: Cough Benzonatate [Tessalon Perles] 200 mg PO TID PRN #20 capsule PRN Reason: Cough Home Medications: Ambulatory Orders Alendronate Sodium 70 mg PO WEEKLY 07/30/16 [Last Taken 08/13/18] Aspirin 81 mg PO DAILY 07/30/16 [Last Taken 08/13/18] Atorvastatin Calcium 10 mg PO DAILY 07/30/16 [Last Taken 08/13/18] Carbamide Peroxide [Debrox] 5 drop OT ASDIR 07/30/16 [Last Taken 08/13/18] Cyanocobalamin (Vitamin B-12) [Vitamin B-12] 1.25 mg PO WEEKLY 07/30/16 [Last Taken 08/13/18] Fexofenadine HCl [Nunu Allergy] 180 mg PO QAM 07/30/16 [Last Taken Unknown] Levetiracetam [Keppra] 1,500 mg PO QHS 07/30/16 [Last Taken 08/13/18] Levetiracetam [Keppra] 750 mg PO QAM 07/30/16 [Last Taken 08/13/18] Multivitamin with Iron [Tab-A-Brooks with Iron] 1 each PO DAILY 07/30/16 [Last Taken 08/13/18] Paroxetine HCl [Paxil] 30 mg PO DAILY 07/30/16 [Last Taken 08/13/18] Sennosides/Docusate Sodium [Doc-Q-Lax Tablet] 2 each PO QHS 07/30/16 [Last Taken 08/13/18] Trazodone HCl 100 mg PO QHS 07/30/16 [Last Taken 08/13/18] Cholecalciferol (Vitamin D3) [Vitamin D3] 50,000 unit PO WEEKLY 08/13/18 [Last Taken 08/13/18] Cyproheptadine HCl 4 mg PO DAILY 08/13/18 [Last Taken 08/13/18] Ferrous Sulfate [Feosol] 325 mg PO DAILY 08/13/18 [Last Taken 08/13/18] Levothyroxine Sodium [Synthroid] 75 mcg PO DAILY 08/13/18 [Last Taken 08/13/18] Azithromycin [Zithromax] 500 mg PO QHS #3 tab 04/09/19 [Last Taken Unknown] Benzonatate [Tessalon Perles] 200 mg PO TID PRN #20 capsule 04/09/19 [Last Taken Unknown] Cefdinir 300 mg PO BID #16 capsule 04/09/19 [Last Taken Unknown] Dextromethorphan Hb/Doxylamine [Robitussin Nighttime Cough Dm] 10 ml PO Q6H PRN #400 ml 04/09/19 [Last Taken Unknown] Gentamicin Sulfate 1 drop EACH EYE Q6H #1 bottle 04/09/19 [Last Taken Unknown] Discharge Plan - Discharge Instructions Activity at Discharge: Increase Activity as Tolerated Diet at Discharge: Advance to Usual Diet Additional Instructions: Azithromycin: Take this medication once a day, your next dose is due 04/09/2019 @ 8pm Cefdinir: Take this medication twice a day, your next dose is due 04/09/2019 @ 8pm Gentamicin eye drops: use every 6 hours in both eyes for 10 days or until symptoms resolve Tescamilo perles: take 1 tab every 8 hours as needed for cough Robitussin: take 10mL every 6 hours as needed for a cough Speech/swallow eval: Recommends honey-thick liquids, pureed foods, and following-up with speech-language pathologist through [facility] and repeat exam if symptoms persist or worsen Follow-up with PCP in 7-10 days Quality Measures - Quality Measures Quality Measures: Advance Directives, Documentation of Current Medications in Medical Record, Elder Maltreatment Screen and Follow-Up Plan, Screening for High Blood Pressure and F/U Documented - Current Medications Quality Measure: Measure #130: Documentation of Current Medications Documentation of Current Medications: <Current Medications Documented/Reviewed> [G2355] - Blood Pressure Screening Quality Measure: Screening for High Blood Pressure and Follow-Up Documented Does Patient Have Any of the Following: Active Dx of HTN Blood Pressure Classification: Hypertensive Reading Systolic Measurement: 160 Diastolic Measurement: 74 Screening for High Blood Pressure: Patient Exclusion, Hx of HTN [G9744] - Advance Directives Quality Measure: Measure #47: Care Plan Advance Directives Established: Yes Advance Directives Information Provided To Patient: Already Provided Advance Directives on File: No Advance Care Planning: <Care Plan/Decision Maker Not Decided; Discussed & Documented> [2894F] - Elder Abuse Suspicion Index Screening: Elder Abuse Suspicion Index Screening Rely on people for bathing, dressing, shopping, banking, etc: Yes Prevented from getting food, clothes, medication, etc: No Made to feel shamed or threatened by someone: No Forced to sign papers or use money against will: No Feel afraid, touched in ways not wanted or hurt physically: No Poor eye contact, withdrawn, malnourished, cuts or bruises: No Screening Result: Negative result EASI Reference Information: Cande RICHTER, Yuliet C, Kirill Tobin, Evens Montgomery.Development and validation of a tool to assist physicians identification of elder abuse: The Elder Abuse Suspicion Index (EASI ). Journal of Elder Abuse and Neglect, 2008; 20 (3): 276-300. - Elder Maltreatment Screen Quality Measures: Elder Maltreatment Screen and Follow-Up Plan Elder Maltreatment Screen: <Negative, No Follow-Up Plan Required> [G8734]
[2019-04-09] MEDS: LEVETIRACETAM 500 MG TABLET PO SCH (11:59)
[2019-04-09] MEDS: ATORVASTATIN 20 MG TABLET PO SCH (11:59)
[2019-04-09] MEDS: ASPIRIN 81 MG CHEWABLE TABLET PO SCH (12:00)
[2019-04-09] MEDS: LORATADINE 10 MG TABLET PO SCH (12:00)
[2019-04-09] MEDS: FERROUS SULFATE 325 MG TAB PO SCH (12:01)
[2019-04-13] MEDS ORDERED: Non-Formulary MISC (Alendronate Sodium [Alendronate Sodium] 70 MG) PO SCH (10:00)
== END 2019-04-09 13:55 | DRG 195 ==
LOC: ER 21:16 → MEDSURG 23:29
PROVIDERS: ADMIT Family Medicine; ATTEND Family Medicine
DX: J18.9 Pneumonia, unspecified organism (principal); R53.1 Weakness; R56.9 Unspecified convulsions; H10.9 Unspecified conjunctivitis; F03.90 Unspecified dementia, unspecified severity, without behavioral disturbance, psychotic disturbance, mood disturbance, and anxiety; Z78.9 Other specified health status; D50.9 Iron deficiency anemia, unspecified; F41.8 Other specified anxiety disorders; M25.552 Pain in left hip; W19.XXXA Unspecified fall, initial encounter; F79 Unspecified intellectual disabilities; F63.9 Impulse disorder, unspecified
CPT/HCPCS: 70450; 71046; 80048; 80053; 81001; 85025; 85027; 87400; 94760; 99223; 99233; 99239; 99285; J0456; J0696; J7050